=== PATIENT | female | born 1965 | race Caucasian/White ===

== ENCOUNTER → 2016-11-11 | Outpatient (CLI) | payer OTHER ==
[~2016-11-11] MED LIST: AMLO-110 PO; BUSP15TA70 PO; CYM/30 PO; FEXO1TAB58 PO; FLUT0.15; HYDR-5688 PO; HYDR25TA4 PO; LISI-461 PO; META1TAB22 PO; [UNRECOGNIZED DRUG - SUPPLY]
[2016-11-11 10:01] LABS: BASO % 0.9 %; BASO ABS # 0.05 K/uL (0-0.2); COMPLETE YES; EOS % 1.5 %; HEMATOCRIT 43.1 % (37-47); IG% 0.4 %; LYMPH % 38.3 %; LYMPH ABS # 2.07 K/uL (1.2-3.4); MEAN CORPUSCULAR HEMOGLOBIN 29.4 pg (25-34); MEAN PLATELET VOLUME 9.6 fL (7.4-10.4); NEUT % 46.9 %; PLATELET COUNT 351 K/uL (130-400); RED BLOOD COUNT 5.13 M/uL (4.2-5.4)
[2016-11-11 10:28] LABS: BLOOD UREA NITROGEN 18 mg/dl (7-18); BUN/CREATININE RATIO 26.7 (10-20); CALCIUM 9.4 mg/dl (8.5-10.1); CARBON DIOXIDE 33 mmol/L (21-32); CHLORIDE 104 mmol/L (98-107); CREATININE 0.68 mg/dl (0.60-1.20); GLUCOSE 64 mg/dl (70-99); POTASSIUM 3.5 mmol/L (3.5-5.1); SODIUM 143 mmol/L (136-145)
[2016-11-11 10:39] LABS: CHOLESTEROL 218 mg/dl (0-200); HDL CHOLESTEROL 44 mg/dl; LDL CHOLESTEROL CALCULATED 113 mg/dl; THYROID STIMULATING HORMONE 0.705 uIu/ml (0.300-4.500); TRIGLYCERIDES 307 mg/dl (0-150); VERY LOW DENSITY LIPOPROT CALC 61 mg/dl
== END | disposition home or self-care (01) ==
LOC: C.LAB 09:33
PROVIDERS: ATTEND Internal Medicine Geriatric Medicine
DX: I10 Essential (primary) hypertension (principal); I73.00 Raynaud's syndrome without gangrene; E78.5 Hyperlipidemia, unspecified

== ENCOUNTER → 2017-06-07 | Outpatient (CLI) | payer OTHER ==
--- NOTE | 2017-06-07 16:27 | DIAGNOSTIC IMAGING REPORT ---
TWO VIEW CHEST CLINICAL HISTORY: Acute bronchitis. FINDINGS: PA and lateral chest radiographs are obtained. No prior studies are available for comparison at the time of dictation. The cardiomediastinal silhouette is unremarkable. The lungs and pleural spaces are clear. There is no pneumothorax. The bony thorax appears intact. IMPRESSION: No active disease in the chest. Electronically signed by: Everton Hernandez M.D. 06/07/2017 4:25 PM Dictated Date/Time: 06/07/2017 4:25 PM
== END | disposition home or self-care (01) ==
LOC: C.RAD 15:44
PROVIDERS: ATTEND Physician Assistant
DX: J20.9 Acute bronchitis, unspecified (principal)

== ENCOUNTER → 2017-08-29 | Outpatient (CLI) | payer OTHER ==
--- NOTE | 2017-08-30 13:40 | MAMMOGRAPHY REPORT ---
BILATERAL DIGITAL SCREENING MAMMOGRAM TOMOSYNTHESIS WITH CAD: 08/29/2017 CLINICAL HISTORY: Routine screening. Patient has no complaints. TECHNIQUE: Breast tomosynthesis in addition to standard 2D mammography was performed. Current study was also evaluated with a Computer Aided Detection (CAD) system. COMPARISON: Comparison is made to exams dated: 11/12/2015 mammogram, 11/10/2014 mammogram, 10/31/2013 ma mmogram, 10/26/2012 mammogram, 04/24/2012 mammogram, and 10/24/2011 ultrasound - [facility] enter. BREAST COMPOSITION: There are scattered areas of fibroglandular density in both breasts. Mild invol utional changes comparing to more remote prior mammograms. FINDINGS: No suspicious mass, architectural distortion or cluster of suspicious microcalcifications is seen. IMPRESSION: ACR BI-RADS CATEGORY 1: NEGATIVE There is no mammographic evidence of malignancy. A 1 year screening mammogram is recommended. The pa tient will receive written notification of the results. Approximately 10% of breast cancers are not detected with mammography. A negative mammographic report should not delay biopsy if a clinically suggestive mass is present. Angela Ponce M.D. ay/:08/29/2017 15:54:31 [employer] Former: Chanel WALLIS(Charmaine)(Moo), [facility] letter sent: Normal 1/2 BI-RADS Code: ACR BI-RADS Category 1: Negative
== END | disposition home or self-care (01) ==
LOC: C.MAMM 12:12
PROVIDERS: ATTEND Internal Medicine Geriatric Medicine
DX: Z12.31 Encounter for screening mammogram for malignant neoplasm of breast (principal)

== ENCOUNTER → 2017-12-14 | Outpatient (CLI) | payer OTHER ==
[2017-12-14 13:07] LABS: BASO % 0.6 %; BASO ABS # 0.04 K/uL (0-0.2); EOS % 1.8 %; EOS ABS # 0.12 K/uL (0-0.5); HEMATOCRIT 45.7 % (37-47); HEMOGLOBIN 15.7 g/dL (12.0-16.0); IG# 0.02 K/uL (0.00-0.02); LYMPH % 30.4 %; LYMPH ABS # 2.07 K/uL (1.2-3.4); MEAN CELL VOLUME 87.5 fL (80-100); MEAN CORPUSCULAR HEMOGLOBIN 30.1 pg (25-34); MEAN CORPUSCULAR HGB CONC 34.4 g/dl (32-36); MEAN PLATELET VOLUME 10.3 fL (7.4-10.4); MONO % 10.3 %; NEUT % 56.6 %; NEUT ABS # 3.85 K/uL (1.4-6.5); PLATELET COUNT 297 K/uL (130-400); RED CELL DISTRIBUTION WIDTH CV 13.4 % (11.5-14.5); RED CELL DISTRIBUTION WIDTH SD 43.1 fL (36.4-46.3)
[2017-12-14 13:37] LABS: FOLLICLE STIMULAT HORMONE 67.91 IU/L
[2017-12-14 13:55] LABS: ALBUMIN 4.1 gm/dl (3.4-5.0); ALT/SGPT 52 U/L (12-78); AST/SGOT 28 U/L (15-37); BLOOD UREA NITROGEN 12 mg/dl (7-18); CALCIUM 9.9 mg/dl (8.5-10.1); CARBON DIOXIDE 28 mmol/L (21-32); CREATININE 0.82 mg/dl (0.60-1.20); GLUCOSE 109 mg/dl (70-99); POTASSIUM 3.5 mmol/L (3.5-5.1); SODIUM 134 mmol/L (136-145)
[2017-12-14 14:09] LABS: ALKALINE PHOSPHATASE 75 U/L (45-117); CHOLESTEROL 257 mg/dl (0-200); LDL CHOLESTEROL CALCULATED 166 mg/dl; TOTAL PROTEIN 7.9 gm/dl (6.4-8.2)
[2017-12-14 14:17] LABS: HEP C IGG 13 YRS+OLDER_RFLX NEG (NEG)
== END | disposition home or self-care (01) ==
LOC: C.LABBC 09:22
PROVIDERS: ATTEND Internal Medicine Geriatric Medicine
DX: I10 Essential (primary) hypertension (principal); E78.5 Hyperlipidemia, unspecified; M54.9 Dorsalgia, unspecified; Z11.59 Encounter for screening for other viral diseases

== ENCOUNTER 2020-10-28 09:48 | Inpatient (IN) ==
[2020-10-28] MEDS ORDERED: SODIUM CHLORIDE 0.9% 1000ML 1,000 ML IV SCH (10:15)
[2020-10-28] MEDS ORDERED: ONDANSETRON INJ 2 MG/ML 2 ML VIAL IV STA (10:15)
--- NOTE | 2020-10-28 10:17 | Emergency Department Note ---
History of Present Illness General Chief complaint: GI Assessment Stated complaint: VOMITING, PUKING BLOOD Time Seen by Provider: 10/28/20 10:04 History of Present Illness Maximum Pain Intensity: 5 This is a 55-year-old female that presents to the emergency department via private vehicle with complaints of "vomiting, vomiting blood". The patient notes that this past Monday she did not feel well. Then Monday night into Monday she began with vomiting. She notes that she has not been able to keep any food, medication or fluids down and every time that she tries to ingest any of these things she begins to vomit. She notes that today she notes a reddish tinged emesis and is concerned about blood in the vomit. She notes intermittent fevers and chills throughout the week. She notes decreased energy. She notes decreased ability to sleep. She also notes lower back pain which she will be following up with pain management for. She notes that she has been vaccinated against Covid 19 and also received her influenza vaccination. She notes a recent Covid test which was negative. She also notes today she began with some periumbilical abdominal pain that seem to favor the right side. She also notes chronic diarrhea. She rates her overall discomfort at this time is a 5/10. Home Medications Medication Instructions Recorded Confirmed Type albuterol sulfate 90 mcg/actuation 2 puffs INH Q6H PRN #8.5 gm 10/24/19 10/28/20 Rx aerosol inhaler acetaminophen 500 mg tablet 1,000 mg PO TID PRN 11/27/19 10/28/20 History fluticasone propionate 50 1 spray INTRANASAL DAILY #9.9 gm 04/02/20 10/28/20 Rx mcg/actuation nasal spray,suspension duloxetine 30 mg capsule,delayed 30 mg PO DAILY #30 cap 05/15/20 10/28/20 Rx release fexofenadine 180 mg tablet 180 mg PO DAILY tab 08/11/20 10/28/20 History hydrochlorothiazide 25 mg tablet 25 mg PO DAILY #90 tab 08/11/20 10/28/20 Rx losartan 25 mg tablet 25 mg PO DAILY #30 tab 08/11/20 10/28/20 Rx Allergies Allergy/AdvReac Type Severity Reaction Status Date / Time celecoxib Allergy Unknown GI SYMPTOMS Verified 10/28/20 11:12 mold Allergy Unknown Unknown Unverified 10/28/20 11:12 meloxicam [From Mobic] AdvReac Intermediate GI upset Unverified 10/28/20 11:12 venlafaxine [From Effexor] AdvReac Intermediate Dizziness Unverified 10/28/20 11:12 codeine AdvReac Mild N&V Verified 10/28/20 11:12 Past Med/Surg History Medical History Back pain Duloxetine for pain control HTN (hypertension) Hyperlipidemia Raynaud's disease Surgical History Ankle fracture, right History of dilation and curettage History of laparoscopy History of oral surgery History of tonsillectomy History of tubal ligation History of vaginal hysterectomy Previous back surgery piriformis suglianne 2017 Family History Sister Congestive heart failure dec 39 also HTN Hypertension Father Coronary heart disease Brother Valvular heart disease Denies family history of Ovarian cancer Prostate cancer Breast cancer Lung cancer Colorectal cancer Social History Smoking Status: Never smoker Hx Alcohol Use: Yes Alcohol Intake Frequency Comment: social Hx Substance Use: No Preferred Language: Czech Communication Ability: Effective Visual Impairment: No Limitations Hearing Ability: Normal marital status: Current Living Situation: Spouse current occupational status: employed 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[employer], [place] Feels Safe at Home: Yes Childhood Exposure to Second-Hand Smoke: No caffeine: Yes Dental Care, Regularly: Yes Physical Activity Frequency: Does not Exercise Seatbelt Use: always Sunscreen Use: Yes Review of Systems A total of 10 systems reviewed and were otherwise negative Physical Exam Vital Signs Vital Signs - 24 hr 10/28/20 09:50 10/28/20 11:24 10/28/20 11:28 Temperature 36.8 C Temperature Source Temporal Artery Scan Pulse Rate 73 64 77 Pulse Rate from SpO2 Sensor 64 76 Respiratory Rate 18 16 18 Respiratory Effort / Characteristics Non-Labored Spontaneous Respiratory Depth Normal Respiratory Pattern Regular Blood Pressure 187/84 H 160/98 H Blood Pressure Mean 118 118 Blood Pressure Position Sitting Pulse Oximetry 99 100 100 Oxygen Delivery Method Room Air Sepsis Recent Fever Within 48 Hours No Sepsis New/Unexplained Change in Mental Status N/A Sepsis Action Taken by Nursing No Action Required 10/28/20 11:30 10/28/20 12:00 10/28/20 12:30 Temperature Temperature Source Pulse Rate 72 72 73 Pulse Rate from SpO2 Sensor 71 70 80 Respiratory Rate 17 19 24 Respiratory Effort / Characteristics Respiratory Depth Respiratory Pattern Blood Pressure Blood Pressure Mean Blood Pressure Position Pulse Oximetry 99 96 90 Oxygen Delivery Method Sepsis Recent Fever Within 48 Hours Sepsis New/Unexplained Change in Mental Status Sepsis Action Taken by Nursing 10/28/20 13:02 10/28/20 13:03 10/28/20 13:30 Temperature Temperature Source Pulse Rate 63 67 72 Pulse Rate from SpO2 Sensor 66 68 Respiratory Rate 18 15 20 Respiratory Effort / Characteristics Respiratory Depth Respiratory Pattern Blood Pressure 175/81 H 159/117 H Blood Pressure Mean 112 131 Blood Pressure Position Pulse Oximetry 100 98 Oxygen Delivery Method Sepsis Recent Fever Within 48 Hours Sepsis New/Unexplained Change in Mental Status Sepsis Action Taken by Nursing 10/28/20 13:54 10/28/20 14:00 10/28/20 14:30 Temperature Temperature Source Pulse Rate 83 78 83 Pulse Rate from SpO2 Sensor 84 78 85 Respiratory Rate 16 19 24 Respiratory Effort / Characteristics Respiratory Depth Respiratory Pattern Blood Pressure 160/88 H 178/94 H 157/84 H Blood Pressure Mean 112 122 108 Blood Pressure Position Pulse Oximetry 99 97 99 Oxygen Delivery Method Sepsis Recent Fever Within 48 Hours Sepsis New/Unexplained Change in Mental Status Sepsis Action Taken by Nursing 10/28/20 15:00 10/28/20 15:01 10/28/20 15:30 Temperature Temperature Source Pulse Rate 72 73 82 Pulse Rate from SpO2 Sensor 75 75 86 Respiratory Rate 16 15 16 Respiratory Effort / Characteristics Respiratory Depth Respiratory Pattern Blood Pressure 146/122 H Blood Pressure Mean 130 Blood Pressure Position Pulse Oximetry 96 98 98 Oxygen Delivery Method Sepsis Recent Fever Within 48 Hours Sepsis New/Unexplained Change in Mental Status Sepsis Action Taken by Nursing 10/28/20 15:32 Temperature Temperature Source Pulse Rate 74 Pulse Rate from SpO2 Sensor 74 Respiratory Rate 23 Respiratory Effort / Characteristics Respiratory Depth Respiratory Pattern Blood Pressure 172/89 H Blood Pressure Mean 116 Blood Pressure Position Pulse Oximetry 99 Oxygen Delivery Method Sepsis Recent Fever Within 48 Hours Sepsis New/Unexplained Change in Mental Status Sepsis Action Taken by Nursing VITAL SIGNS - Vital signs and nursing notes were reviewed. Hypertensive, otherwise stable. GENERAL -55 [id number] appearing her stated age who is in no acute distress but appears to be in pain. Communicates well with provider and answers questions appropriately. SKIN - Without rashes. No meningeal or petechial rash. HEAD - NC/AT. EYES - PERRL with EOMI bilaterally. Sclera anicteric. EARS - No deformities of external structures noted on gross examination bilaterally. NOSE - Midline and without cyanosis. No epistaxis or purulent drainage noted. MOUTH/OROPHARYNX - Without perioral cyanosis. NECK - Neck with FROM. No nuchal rigidity. LUNGS - Chest wall symmetric without accessory muscle use, intercostals retractions, or central cyanosis. Normal vesicular breath sounds CTA B/L. No wheezes, rales, or rhonchi appreciated. CARDIAC - RRR with S1/S2. No murmur, rubs, or gallops appreciated. ABDOMEN - Abdominal contour normal without pulsations or visible masses. BS normoactive all four quadrants. Mild periumbilical and right lower quadrant abdominal tenderness palpation. Abdomen is soft and nonrigid. No palpable masses, hepatosplenomegaly, or ascites noted. EXTREMITIES - No clubbing or peripheral cyanosis. No pretibial edema present. +5/5 strength noted in UE/LE bilaterally. NEUROLOGIC - Cranial nerves II through XII grossly intact. PSYCH - A&O, and cooperates fully with examiner. Pt is very pleasant and interacts well with examiner. Course Administered Medications Discontinued Medications Sodium Chloride (Nss 1000ml) 1,000 mls @ 999 mls/hr IV .Q1H1M JAMES Stop: 10/28/20 11:15 Last Infusion: 10/28/20 12:48 Dose: 0 mls/hr Documented by: [id number] Admin: 10/28/20 11:41 Dose: 999 mls/hr Documented by: [id number] Potassium Chloride (K Marco / Wtr) 10 meq in 100 mls @ 100 mls/hr IV ONE ONE Stop: 10/28/20 14:59 Last Infusion: 10/28/20 16:11 Dose: 0 mls/hr Documented by: [id number] Admin: 10/28/20 14:56 Dose: 100 mls/hr Documented by: [id number] Ioversol (Ioversol 100ml) 94 ml IV ONCE ONE Stop: 10/28/20 13:44 Last Admin: 10/28/20 13:43 Dose: 94 ml Documented by: [id number] Ondansetron HCl (Ondansetron Inj 2 Mg/Ml 2 Ml Vial) 4 mg IV NOW STA Stop: 10/28/20 10:16 Last Admin: 10/28/20 11:39 Dose: 4 mg Documented by: [id number] Medical Decision Making Laboratory Data Result diagrams: 10/28/20 10:26 10/28/20 10:26 Lab Results 10/28/20 10/28/20 10/28/20 Range/Units 10: 10: 11:46 WBC 9.77 (4.8-10.8) K/uL RBC 5.57 H (4.2-5.4) M/uL Hgb 16.7 H (12.0-16.0) g/dL Hct 48.3 H (37-47) % MCV 86.7 (80-100) fL MCH 30.0 (25-34) pg MCHC 34.6 (32-36) g/dL RDW Std Deviation 41.2 (36.4-46.3) fL RDW Coeff of Mont[place] 13.0 (11.5-14.5) % Plt Count 342 (130-400) K/uL MPV 10.2 (7.4-10.4) fL Immature Gran % (Auto) 0.2 % Neut % (Auto) 70.1 % Lymph % (Auto) 20.9 % Hamilton % (Auto) 8.5 % Eos % (Auto) 0.0 % Baso % (Auto) 0.3 % Neut # (Auto) 6.85 H (1.4-6.5) K/uL Lymph # (Auto) 2.04 (1.2-3.4) K/uL Hamilton # (Auto) 0.83 H (0.11-0.59) K/uL Eos # (Auto) 0.00 (0-0.5) K/uL Baso # (Auto) 0.03 (0-0.2) K/uL Immature Gran # (Auto) 0.02 (0.00-0.02) K/uL Sodium 139 (136-145) mmol/L Potassium 2.8 L (3.5-5.1) mmol/L Chloride 103 (98-107) mmol/L Carbon Dioxide 30 (21-32) mmol/L Anion Gap 6.0 (3-11) BUN 16 (7-18) mg/dl Creatinine 0.85 (0.6-1.2) mg/dl Est Cr Clr Drug Dosing 75.2 ml/min Est GFR ( Amer) 88.2 Est GFR (Non-Af Amer) 76.1 BUN/Creatinine Ratio 18.1 (10-20) Glucose 120 H (70-99) mg/dl Calcium 10.1 (8.5-10.1) mg/dl Magnesium 2.3 (1.8-2.4) mg/dl Total Bilirubin 0.9 (0.2-1) mg/dl AST 20 (15-37) U/L ALT 33 (12-78) U/L Alkaline Phosphatase 64 (45-117) U/L Troponin I < 0.015 (0-0.045) ng/ml Total Protein 7.8 (6.4-8.2) gm/dl Albumin 4.3 (3.4-5.0) gm/dl Globulin 3.5 (2.5-4.0) gm/dl Albumin/Globulin Ratio 1.2 (0.9-2) Urine Color Dark Yellow Urine Appearance Cloudy A (Clear) Urine pH 5.5 (4.5-7.5) Ur Specific [place] 1.032 H (1.000-1.030) Urine Protein Trace H (Negative) Urine Glucose (UA) Negative (Negative) Urine Ketones Trace H (Negative) Urine Blood 1+ H (Negative) Urine Nitrite Positive A (Negative) Urine Bilirubin 1+ H (Negative) Urine Urobilinogen Negative (Negative) Ur Leukocyte Esterase Negative (Negative) Urine WBC (Auto) 1-5 (0-5) /hpf Urine RBC (Auto) 0-4 (0-4) /hpf U Hyaline Cast (Auto) 1-5 (0-5) /lpf U Epithel Cells (Auto) 5-10 H (0-5) /lpf Urine Bacteria (Auto) Negative (Negative) COVID-19 Eval Order SARS-CoV-2, RNA, NAAT (NEGATIVE) 10/28/20 10/28/20 Range/Units Unknown Unknown WBC (4.8-10.8) K/uL RBC (4.2-5.4) M/uL Hgb (12.0-16.0) g/dL Hct (37-47) % MCV (80-100) fL MCH (25-34) pg MCHC (32-36) g/dL RDW Std Deviation (36.4-46.3) fL RDW Coeff of Montse (11.5-14.5) % Plt Count (130-400) K/uL MPV (7.4-10.4) fL Immature Gran % (Auto) % Neut % (Auto) % Lymph % (Auto) % [place] % (Auto) % Eos % (Auto) % Baso % (Auto) % Neut # (Auto) (1.4-6.5) K/uL Lymph # (Auto) (1.2-3.4) K/uL [place] # (Auto) (0.11-0.59) K/uL Eos # (Auto) (0-0.5) K/uL Baso # (Auto) (0-0.2) K/uL Immature Gran # (Auto) (0.00-0.02) K/uL Sodium (136-145) mmol/L Potassium (3.5-5.1) mmol/L Chloride (98-107) mmol/L Carbon Dioxide (21-32) mmol/L Anion Gap (3-11) BUN (7-18) mg/dl Creatinine (0.6-1.2) mg/dl Est Cr Clr Drug Dosing ml/min Est GFR ( Amer) Est GFR (Non-Af Amer) BUN/Creatinine Ratio (10-20) Glucose (70-99) mg/dl Calcium (8.5-10.1) mg/dl Magnesium (1.8-2.4) mg/dl Total Bilirubin (0.2-1) mg/dl AST (15-37) U/L ALT (12-78) U/L Alkaline Phosphatase (45-117) U/L Troponin I (0-0.045) ng/ml Total Protein (6.4-8.2) gm/dl Albumin (3.4-5.0) gm/dl Globulin (2.5-4.0) gm/dl Albumin/Globulin Ratio (0.9-2) Urine Color Urine Appearance (Clear) Urine pH (4.5-7.5) Ur Specific [place] (1.000-1.030) Urine Protein (Negative) Urine Glucose (UA) (Negative) Urine Ketones (Negative) Urine Blood (Negative) Urine Nitrite (Negative) Urine Bilirubin (Negative) Urine Urobilinogen (Negative) Ur Leukocyte Esterase (Negative) Urine WBC (Auto) (0-5) /hpf Urine RBC (Auto) (0-4) /hpf U Hyaline Cast (Auto) (0-5) /lpf U Epithel Cells (Auto) (0-5) /lpf Urine Bacteria (Auto) (Negative) COVID-19 Eval Order Covid19 [facility]Now [facility] SARS-CoV-2, RNA, NAAT NEGATIVE (NEGATIVE) Imaging Data Radiologist's Impression: XR chest 1V portable CLINICAL HISTORY: burning sensation in chest COMPARISON STUDY: 11/28/2018 FINDINGS: The cardiac and mediastinal contours are normal. There is no evidence of focal pulmonary consolidation. There is no evidence of failure. No pleural effusions are visualized.[ IMPRESSION: No active disease in the chest. ACT 112: Negative or not required by law. Electronically signed by: Phani Nicolas M.D. 10/28/2020 10:[address] abd pelvis IV con only CLINICAL HISTORY: emesis, abd pain COMPARISON STUDY: None. TECHNIQUE: Patient was scanned in a dynamic helical fashion during intravenous administration of 94 cc of Optiray 320 A dose lowering technique was utilized adhering to the principles of ALARA. CT DOSE: 902.45 mGycm FINDINGS: Lower chest: There is a 5 mm left lower lobe pulmonary nodule versus small varix. Liver: The contrast-enhanced liver is normal in size, contour, and attenuation. There is no intrahepatic biliary ductal dilatation. The hepatic veins and portal veins are patent. Gallbladder: Unremarkable. Spleen: Normal in size and attenuation. Pancreas: Unremarkable. Adrenal glands: Unremarkable. Kidneys: There is symmetric renal cortical enhancement. The kidneys are normal in size without hydronephrosis. Bowel: There is no evidence of acute diverticulitis. The appendix appears normal. There is a mildly prominent right mid abdominal small bowel loops the upper limits of normal in size containing air-fluid levels. This is a nonspecific finding and could represent a focal ileus. Minimal partial obstruction cannot be excluded, there is clearly no current evidence for high-grade bowel obstruction. Peritoneum: There is no intraperitoneal free air or abdominal ascites. Vasculature: The abdominal aorta is normal in course and caliber. Adenopathy: None. Pelvic viscera: The uterus is surgically absent Skeletal structures: No destructive osseous lesions are seen. IMPRESSION: 1. Minimally prominent right mid abdominal small bowel loops with air-fluid levels. The finding is nonspecific and could represent a focal ileus. While a minimal partial obstruction cannot be excluded, there is clearly no current evidence for high-grade bowel obstruction. Clinical follow-up is advocated 2. Normal appendix. No evidence of acute diverticulitis ACT 112: Negative or not required by law. Electronically signed by: Phani Nicolas M.D. 10/28/2020 2:00 PM MDM Narrative Patient was seen and evaluated as above in room C7. Review was performed of nursing notes and vital signs. I did review pertinent previous visits and tino ent history. After obtaining a thorough history and physical examination the above work up was performed. She presents to us today with abdominal pain, vomiting. She notes several days of unable to keep any food, fluids or medication down. She continues to vomit. She notes today that there was some redness to the vomit. On examination she does have some mild abdominal tenderness. Options of care were discussed with the patient. IV access was established. Labs were drawn. She was given IV fluids. She was given IV Zofran. She declined pain medication. Given the location of discomfort and EKG and chest x- ray were performed on arrival and the chest x-ray is negative. EKG reveals nor mal sinus rhythm. QTc 440. QRS 108. There appear to be some new T wave inversions compared to previous EKG however troponin at this time is negative and this is not felt to be contributory to presentation here today. Laboratory studies reveal no leukocytosis. There is elevation of hemoglobin at 16.7. Hypokalemia 2.8. Glucose 120. Urinalysis reveals what is likely a contaminated sample. Patient's Covid testing is negative. CT scan was obtained of the abdomen and pelvis and does reveal what is concerning for possible partial bowel obstruction given her presentation and symptoms. Options were discussed in regard to managing this and we collectively agreed upon inpatient management for her further care. I discussed this with the hospitalist. Please refer to further documentation regarding her stay. GCS: 15 In the evaluation and treatment of this patient the following differential diagnoses were entertained: DE, PE, pericarditis, costochondritis, bowel obstruction, ileus, UTI, among others. Impression & Plan SBO (small bowel obstruction), Diarrhea Discharge Plan Visit Data Chief Complaint: GI Assessment Stated Complaint: VOMITING, PUKING BLOOD ED Provider: Kj Zaldivar ED Midlevel Provider: Kaleb Hogan Discharge Problem: SBO (small bowel obstruction), Diarrhea Patient Disposition: Admitted As Inpatient Condition: Good Forms Stand Alone Forms: My [facility], Virtual Emergency Department, Important Visit Information Prescriptions Prescriptions: No Action fluticasone propionate 50 mcg/actuation spray,suspension 1 spray intranasal DAILY Qty: 9.9 RF: 6 duloxetine 30 mg capsule,delayed release(DR/EC) 30 mg PO DAILY Qty: 30 RF: 6 albuterol sulfate 90 mcg/actuation HFA aerosol inhaler 2 puffs INH Q6H PRN (Reason: bronchospasm) Qty: 8.5 RF: 3 hydrochlorothiazide 25 mg tablet 25 mg PO DAILY Qty: 90 RF: 1 losartan 25 mg tablet 25 mg PO DAILY Qty: 30 RF: 6 acetaminophen 500 mg tablet 1,000 mg PO TID PRN (Reason: Pain) RF: 0 fexofenadine 180 mg tablet 180 mg PO DAILY RF: 0 Referrals Referrals: Hosea Fuller DO [Primary Care Provider] -
--- NOTE | 2020-10-28 10:29 | XRay Report ---
XR chest 1V portable CLINICAL HISTORY: burning sensation in chest COMPARISON STUDY: 11/28/2018 FINDINGS: The cardiac and mediastinal contours are normal. There is no evidence of focal pulmonary co nsolidation. There is no evidence of failure. No pleural effusions are visualized.[ IMPRESSION: No active disease in the chest. ACT 112: Negative or not required by law. Electronically signed by: Phani Nicolas M.D. 10/28/2020 10:28 AM
[2020-10-28 12:01] LABS: Appearance Urine Cloudy (Clear); Bacteria Urine Automated Negative (Negative); Blood Urine 1+ (Negative); Color Urine Dark Yellow; Glucose Urine UA Negative (Negative); Ketones Urine Trace (Negative); Leukocyte Esterase Urine Negative (Negative); Nitrite Urine Positive (Negative); Protein Urine Trace (Negative); RBC Urine Automated 0-4 /hpf (0-4); Specific Gravity Urine 1.032 (1.000-1.030); Urobilinogen Urine Negative (Negative); pH Urine 5.5 (4.5-7.5)
[2020-10-28 12:18] LABS: Basophils # (auto) 0.03 K/uL (0-0.2); Basophils % (auto) 0.3 %; Hematocrit (blood only) 48.3 % (37-47); Hemoglobin 16.7 g/dL (12.0-16.0); Immature Granulocytes # (auto) 0.02 K/uL (0.00-0.02); Immature Granulocytes % (auto) 0.2 %; Lymphocytes # (auto) 2.04 K/uL (1.2-3.4); Lymphocytes % (auto) 20.9 %; Mean Corpuscular Hgb Conc 34.6 g/dL (32-36); Mean Corpuscular Volume 86.7 fL (80-100); Mean Platelet Volume 10.2 fL (7.4-10.4); Monocytes # (auto) 0.83 K/uL (0.11-0.59); Monocytes % (auto) 8.5 %; Neutrophils # (auto) 6.85 K/uL (1.4-6.5); Neutrophils % (auto) 70.1 %; Platelet Count 342 K/uL (130-400); RDW Standard Deviation 41.2 fL (36.4-46.3); Red Blood Count 5.57 M/uL (4.2-5.4); White Blood Count 9.77 K/uL (4.8-10.8)
[2020-10-28 12:24] LABS: Albumin Level 4.3 gm/dl (3.4-5.0); BUN Creatinine Ratio 18.1 (10-20); Blood Urea Nitrogen 16 mg/dl (7-18); Calcium 10.1 mg/dl (8.5-10.1); Carbon Dioxide 30 mmol/L (21-32); Chloride 103 mmol/L (98-107); Creatinine Clr Calc Pharmacy 75.2 ml/min; Est GFR (African American) 88.2; Est GFR (Non-African American) 76.1; Glucose 120 mg/dl (70-99); Magnesium 2.3 mg/dl (1.8-2.4); Potassium 2.8 mmol/L (3.5-5.1); Sodium 139 mmol/L (136-145)
--- NOTE | 2020-10-28 12:26 | Electrocardiogram Report ---
Test Reason : Blood Pressure : / mmHG Vent. Rate : 069 BPM Atrial Rate : 069 BPM P-R Int : 160 ms QRS Dur : 108 ms QT Int : 410 ms P-R-T Axes : 042 -44 -10 degrees QTc Int : 440 ms Normal sinus rhythm with sinus arrhythmia Left axis deviation Minimal voltage criteria for LVH, may be normal variant Nonspecific ST and T wave abnormality Abnormal ECG When compared with ECG of 29-NOV-2018 14:41, T wave inversion now evident in Inferior leads T wave inversion now evident in Anterior leads Confirmed by Daron Tavarez ([id number]) on 10/28/2020 12:25:48 PM Referred By: REFERRED SELF Confirmed By:Keegan Tavarez
[2020-10-28 12:28] LABS: Bilirubin Urine 1+ (Negative)
[2020-10-28 12:29] LABS: Alanine Aminotransferase 33 U/L (12-78); Albumin Globulin Ratio 1.2 (0.9-2); Alkaline Phosphatase 64 U/L (45-117); Aspartate Aminotransferase 20 U/L (15-37); Bilirubin,Total 0.9 mg/dl (0.2-1); Globulin 3.5 gm/dl (2.5-4.0); Total Protein 7.8 gm/dl (6.4-8.2); Troponin I < 0.015 ng/ml (0-0.045)
[2020-10-28] MEDS ORDERED: OPTIRAY 320 100ml IV ONE (13:43)
[2020-10-28] MEDS ORDERED: POTASSIUM CHLORIDE / WTR 10 MEQ/100 ML PLCT IV ONE (14:00)
--- NOTE | 2020-10-28 14:02 | CT Scan Report ---
CT abd pelvis IV con only CLINICAL HISTORY: emesis, abd pain COMPARISON STUDY: None. TECHNIQUE: Patient was scanned in a dynamic helical fashion during intravenous administration of 94 c c of Optiray 320 A dose lowering technique was utilized adhering to the principles of ALARA. CT DOSE: 902.45 mGycm FINDINGS: Lower chest: There is a 5 mm left lower lobe pulmonary nodule versus small varix. Liver: The contrast-enhanced liver is normal in size, contour, and attenuation. There is no intrahepa tic biliary ductal dilatation. The hepatic veins and portal veins are patent. Gallbladder: Unremarkable. Spleen: Normal in size and attenuation. Pancreas: Unremarkable. Adrenal glands: Unremarkable. Kidneys: There is symmetric renal cortical enhancement. The kidneys are normal in size without hydron ephrosis. Bowel: There is no evidence of acute diverticulitis. The appendix appears normal. There is a mildly p rominent right mid abdominal small bowel loops the upper limits of normal in size containing air-flui d levels. This is a nonspecific finding and could represent a focal ileus. Minimal partial obstruction cannot be excluded, there is clearly no current evidence for high-grade b owel obstruction. Peritoneum: There is no intraperitoneal free air or abdominal ascites. Vasculature: The abdominal aorta is normal in course and caliber. Adenopathy: None. Pelvic viscera: The uterus is surgically absent Skeletal structures: No destructive osseous lesions are seen. IMPRESSION: 1. Minimally prominent right mid abdominal small bowel loops with air-fluid levels. The finding is no nspecific and could represent a focal ileus. While a minimal partial obstruction cannot be excluded, there is clearly no current evidence for high-grade bowel obstruction. Clinical follow-up is advocate d 2. Normal appendix. No evidence of acute diverticulitis ACT 112: Negative or not required by law. Electronically signed by: Phani Nicolas M.D. 10/28/2020 2:00 PM
--- NOTE | 2020-10-28 15:16 | History & Physical Report ---
Date of Service October 28, 2020 Assessment & Plan (1) SBO (small bowel obstruction): CT a/p on 10/28 showed "minimally prominent right mid abdominal small bowel loops with air-fluid levels" consistent with possible ileus vs. partial SBO. Hysterectomy in 1994 is only prior abdominal surgery. Mild hematemesis is likely Emmy-Lopez in nature. No melena to indicate significant upper GI bleed. - Defer GI consult for now. - PPI IV daily to promote healing - Gentle IV fluids - Replete potassium & other electrolytes PRN - Pain & nausea control - NPO with sips/chips only -> Advance diet tomorrow morning if comfortable. Patient presently declined NG tube which I think is appropriate given very mild findings on CT. (2) HTN (hypertension): BP in the ED was initially 190/85 in the context of pain and nausea. Down to 160/85 just with pain control. Has not taken her BP meds since Monday due to nausea and vomiting. - Hold home BP meds - Hydralazine PRN for high BP (3) Back pain: Long-standing with prior piriformis surgery and some residual and ongoing left-sided sciatica pain and some left hip numbness. - Continue duloxetine as able to tolerate - Pain control as above (4) Diarrhea: Ongoing for 6 months. No blood, no melena. Being worked up as outpatient. - Defer Imodium for now in the context of SBO - Continue outpatient work-up (5) Hyperlipidemia: Not on any home statin. - No inpatient needs (6) DVT prophylaxis: SCDs - Low DVT risk per admission calculator History of Present Illness Primary Care Provider: Hosea Fuller, DO 55yo F w/ hx of HTN & allergies who presents with partial SBO vs. ileus. She reports that she was in her usual state of health until Monday night/Monday morning when she began to have nausea and emesis after eating and drinking. She also reports some RLQ pain without radiation that has been ongoing and steadily worsening in nature. She notes that the pain is slightly worse when she eats or drinks something which causes to vomit. She has had multiple rounds of emesis and this morning had two swallows of water and two of coffee and had emesis with some mild/moderate blood tinge. She reports the vomitus was reddish and "more than pink." No coffee grounds with it. She has been having diarrhea for 6 months, and reports continued diarrhea during this time. She reports just a bit of diarrhea while in the ED; however, she is not passing any gas at this time. She endoreses some mild, subjective fevers and chills, and some GERD-type chest pain with emesis. Otherwise no chest pain, no shortness of breath, no dizziness. She had a hysterectomy in ~1994, but no other abdominal surgeries and no prior episodes of SBO. Allergies Allergy/AdvReac Type Severity Reaction Status Date / Time celecoxib Allergy Unknown GI SYMPTOMS Verified 10/28/20 11:12 mold Allergy Unknown Unknown Unverified 10/28/20 11:12 meloxicam [From Mobic] AdvReac Intermediate GI upset Unverified 10/28/20 11:12 venlafaxine [From Effexor] AdvReac Intermediate Dizziness Unverified 10/28/20 11:12 codeine AdvReac Mild N&V Verified 10/28/20 11:12 Home Medications Medication Instructions Recorded Confirmed Type albuterol sulfate 90 mcg/actuation 2 puffs INH Q6H PRN #8.5 gm 10/24/19 10/28/20 Rx aerosol inhaler acetaminophen 500 mg tablet 1,000 mg PO TID PRN 11/27/19 10/28/20 History fluticasone propionate 50 1 spray INTRANASAL DAILY #9.9 gm 04/02/20 10/28/20 Rx mcg/actuation nasal spray,suspension duloxetine 30 mg capsule,delayed 30 mg PO DAILY #30 cap 05/15/20 10/28/20 Rx release fexofenadine 180 mg tablet 180 mg PO DAILY tab 08/11/20 10/28/20 History hydrochlorothiazide 25 mg tablet 25 mg PO DAILY #90 tab 08/11/20 10/28/20 Rx losartan 25 mg tablet 25 mg PO DAILY #30 tab 08/11/20 10/28/20 Rx Past Med/Surg History Medical History Back pain Duloxetine for pain control HTN (hypertension) Hyperlipidemia Raynaud's disease Surgical History Ankle fracture, right History of dilation and curettage History of laparoscopy History of oral surgery History of tonsillectomy History of tubal ligation History of vaginal hysterectomy Previous back surgery piriformis suglianne 2017 Family History Sister Congestive heart failure aug 39 also HTN Hypertension Father Coronary heart disease Brother Valvular heart disease Denies family history of Ovarian cancer Prostate cancer Breast cancer Lung cancer Colorectal cancer Social History Smoking Status: Never smoker Hx Alcohol Use: Yes Alcohol Intake Frequency Comment: social Hx Substance Use: No Preferred Language: French Communication Ability: Effective Visual Impairment: No Limitations Hearing Ability: Normal marital status: Current Living Situation: Spouse current occupational status: employed 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[employer] Feels Safe at Home: Yes Childhood Exposure to Second-Hand Smoke: No caffeine: Yes Dental Care, Regularly: Yes Physical Activity Frequency: Does not Exercise Seatbelt Use: always Sunscreen Use: Yes Review of Systems Review of Systems: All systems reviewed & are unremarkable except as noted in HPI & below Physical Exam Constitutional: WD/WN, vitals as above Eyes: EOM intact bilaterally; no conjunctival abnormality ENMT: external ear and nose normal, oropharynx normal Neck: trachea midline, no thyromegaly normal visual inspection Respiratory: normal respiratory effort, lungs clear to auscultation no respiratory distress Cardiovascular: RRR, no murmur, no edema Gastrointestinal (Abdomen): Inspection/Auscultation: abdomen normal to inspection and normal bowel sounds; abdomen not distended Percussion/Palpation: + abdomen tender (Minimally in RLQ) and abdomen soft; no guarding and abdomen not rigid Musculoskeletal: no cyanosis or clubbing, extremities motor strength 5/5 Skin: no rashes, warm and dry Neurologic: moves all extremities and awake Psychiatric: Orientation: alert, oriented to person and cooperative Results & Data Results & Data ([facility]) Vital Signs (Past 12 Hours) Vital Signs Temp Pulse Resp BP Pulse Ox 10/28/20 14:30 83 24 157/84 H 99 10/28/20 14:00 78 19 178/94 H 97 10/28/20 13:54 83 16 160/88 H 99 10/28/20 13:30 72 20 159/117 H 98 10/28/20 13:03 67 15 100 10/28/20 13:02 63 18 175/81 H 02/24/21 12:30 73 24 90 10/28/20 12:00 72 19 96 10/28/20 11:30 72 17 99 10/28/20 11:28 77 18 100 10/28/20 11:24 64 16 160/98 H 100 10/28/20 09:50 36.8 C 73 18 187/84 H 99 Code Status & VTE Plan VTE Prophylaxis Plan VTE Prophylaxis will be ordered: Yes PG Care Time/CCT Total # of Minutes Spent Total Time Spent with Patient: Total time spent is greater than 50% in coordination of care (as documented) at patient's floor/unit and/or counseling patient: Coding Level of Care Code 17460 Initial Inpt Care Lvl 3 Diagnoses SBO (small bowel obstruction) K56.609 HTN (hypertension) I10 Back pain M54.9 Diarrhea R19.7 Hyperlipidemia E78.5 DVT prophylaxis Z29.9
[2020-10-28] MEDS ORDERED: ACETAMINOPHEN 1,000 MG/100 ML VIAL IV PRN (17:48)
[2020-10-28] MEDS ORDERED: MoRPHine SULFATE 4 MG/ML 1 ML CARP\\VIAL IV PRN (17:48)
[2020-10-28] MEDS ORDERED: ALBUTEROL HFA 8 GM INHALER INH PRN (17:48)
[2020-10-28] MEDS ORDERED: ONDANSETRON INJ 2 MG/ML 2 ML VIAL IV PRN (17:48)
[2020-10-28] MEDS ORDERED: hydrALAZINE HCL 20 MG/ML VIAL IV PRN (17:48)
[2020-10-28] MEDS: POTASSIUM CHLORIDE / WTR 10 MEQ/100 ML PLCT IV SCH ×3 (18:41→20:46)
[2020-10-28] MEDS: POTASSIUM CHLORIDE 40 MEQ in SODIUM CHLORIDE 0.9% 1000ML 1,000 ML IV SCH (18:41)
[2020-10-28] MEDS: FAMOTIDINE 20 MG in SYRINGE 3 ML IV SCH (20:50)
[2020-10-29 07:44] LABS: Hematocrit (blood only) 42.3 % (37-47); Hemoglobin 14.3 g/dL (12.0-16.0); Mean Corpuscular Hemoglobin 29.8 pg (25-34); Mean Corpuscular Hgb Conc 33.8 g/dL (32-36); Mean Corpuscular Volume 88.1 fL (80-100); Mean Platelet Volume 9.8 fL (7.4-10.4); Platelet Count 284 K/uL (130-400); RDW Standard Deviation 42.2 fL (36.4-46.3); White Blood Count 7.55 K/uL (4.8-10.8)
[2020-10-29] MEDS: FLUTICASONE PROPIONATE NA SPR 16 GM BTL SCH (08:07)
[2020-10-29] MEDS: POTASSIUM CHLORIDE 40 MEQ in SODIUM CHLORIDE 0.9% 1000ML 1,000 ML IV SCH (08:07)
[2020-10-29] MEDS: FAMOTIDINE 20 MG in SYRINGE 3 ML IV SCH ×2 (08:08→20:06)
[2020-10-29] MEDS: DULoxetine HCL 30 MG CAP PO SCH (08:08)
[2020-10-29 08:16] LABS: BUN Creatinine Ratio 17.6 (10-20); Calcium 8.8 mg/dl (8.5-10.1); Creatinine Clr Calc Pharmacy 87.6 ml/min; Est GFR (Non-African American) 91.4; Magnesium 2.3 mg/dl (1.8-2.4); Potassium 3.2 mmol/L (3.5-5.1)
[2020-10-29] MEDS ORDERED: POTASSIUM CHLORIDE 10 MEQ TABCR PO ONE (09:45)
--- NOTE | 2020-10-29 13:10 | Hospitalist Progress Note ---
Date of Service October 29, 2020 Assessment & Plan (1) SBO (small bowel obstruction): * CT a/p on 10/28 showed "minimally prominent right mid abdominal small bowel loops with air-fluid levels" consistent with possible ileus vs. partial SBO. Hysterectomy in 1994 is only prior abdominal surgery. Mild hematemesis is likely Emmy-Lopez in nature. No melena to indicate significant upper GI bleed. * Pepcid IV BID to promote healing -- continue PPI at d/c * Gentle IVF but will increase to 100cc/hr for next liter then d/c * Clear liquid diet for now, advance as tolerated * Potassium replacement in IV and added 30meq PO this morning * Pain/nausea control prn * Will need education on low fiber diet and will have her follow up with Dr. Rashid for c--scope as outpatient (also with chronic diarrhea) * Labs in AM (2) HTN (hypertension): * BP in the ED was initially 190/85 in the context of pain and nausea and went down to 160/85 just with pain control. * Of note, had not taken her BP meds since Monday due to nausea and vomiting. * With headache this morning x 2 (first relieved with tylenol) and BP elevated to 156/79 * Will resume losartan 25mg PO but hold HCTZ given hypokalemia * Hydralazine prn * Continue to monitor (3) Back pain: * Long-standing with prior piriformis surgery and some residual and ongoing left-sided sciatica pain and some left hip numbness. * Conitnued duloxetine * Added lidocaine patch, baclofen prn * Will get pain management appt for f/u with Dr. Quintero per patient request (4) Diarrhea: * Ongoing for 6 months. No blood, no melena. Being worked up as outpatient. * Patient denies any specific food allergies or specific items that make diarrhea worse. "Ten minutes after I eat I'm in the bathroom" * Defer Imodium for now in the context of SBO * Continue outpatient work-up with f/u with GI for outpatient scope/ further work-up (5) Hyperlipidemia: * Not on any home statin. Most recent lipid panel August 2020 with elevated triglycerides 458 and cholesterol 231 * Will discuss starting fenofibrate/statin prior to discharge -- may need to defer to PCP until pain addressed to avoid increased myalgias with statin therapy * Will discuss with patient in AM (6) Allergies: * Chronic * Takes Shona and flonase as outpatient * Increased congestion this morning improved with flonase * Will resume Shona in AM (7) DVT prophylaxis: * SCDs - Low DVT risk per admission calculator * Ambulation encouraged Dispo: continued inpatient stay -- possible discharge tomorrow vs. Monday Admission and Anticipated Discharge Date Admission Date: October 28, 2020 Supervising Physician Co-Signing Physician Notes PA Supervision Note: I did not personally see or examine the patient today, but I verified all branch points of DELANEY Cruz's assessment and plan with the following exceptions/additions: None Subjective Patient evaluated this afternoon. Tolerating ice chips but nothing else. Passing gas and has had multiple liquid/clear stools. Previous coloscopy at age 48 [address] Rashid and discussed following up for repeat studies. Also discussed low fiber diet for the next 2 days. No further n/v or hematemesis. Continued PPI. Has some reflux like symptoms with water though. Abdominal pain more crampy like but improved to umbilical/right quadrant. Mild headache this morning and relieved with Tylenol but headache back now. Typically takes HCTZ 25mg and losartan 25 mg. Will resume losartan for BP 156/79 and hypokalemia. Took potassium without issues this morning. No fever, chills, chest pain, shortness of breath, dysuria, however she is making less urine than typically per her account. Will increase rate for this current bag of IVF and advance to clear liquids. Has some chronic L hip/back pain and issues with her facets. 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 She was to have follow up with pain management but got a call about follow up with Natalie manuel. Discussed making an appointment for her prior to d/c and if needed after f/u with PCP/medication adjustments. She had previously seen Dr. Carey. Will try lidocaine patch and zanaflex. Discussed diet changes for today and if stable tomorrow can consider d/c with close follow up. Review of Systems Review of Systems: All systems reviewed & are unremarkable except as noted in HPI & below Physical Exam Constitutional: WD/WN, vitals as above Eyes: EOM intact bilaterally; no conjunctival abnormality ENMT: external ear and nose normal, oropharynx normal Neck: trachea midline, no thyromegaly normal visual inspection Respiratory: normal respiratory effort, lungs clear to auscultation no respiratory distress Cardiovascular: RRR, no murmur, no edema Gastrointestinal (Abdomen): Inspection/Auscultation: abdomen normal to inspection and normal bowel sounds; abdomen not distended Percussion/Palpation: abdomen soft; abdomen nontender, no guarding and abdomen not rigid Musculoskeletal: no cyanosis or clubbing, extremities motor strength 5/5 Skin: no rashes, warm and dry Neurologic: moves all extremities and awake Psychiatric: Orientation: alert, oriented to person and cooperative Results & Data Results & Data ([facility]) Vital Signs (Past 12 Hours) Vital Signs Temp Pulse Resp BP Pulse Ox 10/29/20 07:55 37.3 C 77 18 156/79 H 93 Laboratory Results 10/29/20 10/29/20 10/29/20 Range/Units 07:11 07:11 07:11 WBC 7.55 (4.8-10.8) K/uL RBC 4.80 (4.2-5.4) M/uL Hgb 14.3 (12.0-16.0) g/dL Hct 42.3 (37-47) % MCV 88.1 (80-100) fL MCH 29.8 (25-34) pg MCHC 33.8 (32-36) g/dL RDW Std Deviation 42.2 (36.4-46.3) fL RDW Coeff of Montse 13.0 (11.5-14.5) % Plt Count 284 (130-400) K/uL MPV 9.8 (7.4-10.4) fL Sodium 143 (136-145) mmol/L Potassium 3.2 L (3.5-5.1) mmol/L Chloride 111 H (98-107) mmol/L Carbon Dioxide 27 (21-32) mmol/L Anion Gap 5.0 (3-11) BUN 13 (7-18) mg/dl Creatinine 0.73 (0.6-1.2) mg/dl Est Cr Clr Drug Dosing 87.6 ml/min Est GFR ( Amer) 106.0 Est GFR (Non-Af Amer) 91.4 BUN/Creatinine Ratio 17.6 (10-20) Glucose 105 H (70-99) mg/dl Calcium 8.8 (8.5-10.1) mg/dl Magnesium 2.3 (1.8-2.4) mg/dl Lipase 99 (73-393) U/L COVID-19 Eval Order SARS-CoV-2, RNA, NAAT (NEGATIVE) 10/28/20 10/28/20 Range/Units Unknown Unknown WBC (4.8-10.8) K/uL RBC (4.2-5.4) M/uL Hgb (12.0-16.0) g/dL Hct (37-47) % MCV (80-100) fL MCH (25-34) pg MCHC (32-36) g/dL RDW Std Deviation (36.4-46.3) fL RDW Coeff of Montse (11.5-14.5) % Plt Count (130-400) K/uL MPV (7.4-10.4) fL Sodium (136-145) mmol/L Potassium (3.5-5.1) mmol/L Chloride (98-107) mmol/L Carbon Dioxide (21-32) mmol/L Anion Gap (3-11) BUN (7-18) mg/dl Creatinine (0.6-1.2) mg/dl Est Cr Clr Drug Dosing ml/min Est GFR ( Amer) Est GFR (Non-Af Amer) BUN/Creatinine Ratio (10-20) Glucose (70-99) mg/dl Calcium (8.5-10.1) mg/dl Magnesium (1.8-2.4) mg/dl Lipase (73-393) U/L COVID-19 Eval Order Covid19 IDNow atMMOC SARS-CoV-2, RNA, NAAT NEGATIVE (NEGATIVE) Diagnostic Findings CXR IMPRESSION: No active disease in the chest. CTAP IMPRESSION: 1. Minimally prominent right mid abdominal small bowel loops with air-fluid levels. The finding is nonspecific and could represent a focal ileus. While a minimal partial obstruction cannot be excluded, there is clearly no current evidence for high-grade bowel obstruction. Clinical follow-up is advocated 2. Normal appendix. No evidence of acute diverticulitis PG Care Time/CCT Total # of Minutes Spent Total Time Spent with Patient: Total time spent is greater than 50% in coordination of care (as documented) at patient's floor/unit and/or counseling patient: Coding Level of Care Code 20659 Subseq Hosp Care Lvl 3 Diagnoses SBO (small bowel obstruction) K56.609 HTN (hypertension) I10 Back pain M54.9 Diarrhea R19.7 Hyperlipidemia E78.5 Allergies T78.40XA DVT prophylaxis Z29.9
[2020-10-29] MEDS: LIDOCAINE 5% 1 PATCH TD SCH (13:48)
[2020-10-29] MEDS: BACLOFEN 10 MG TAB PO SCH ×2 (13:48→20:06)
[2020-10-29] MEDS: LOSARTAN POTASSIUM 25 MG TAB PO SCH (13:48)
--- NOTE | 2020-10-29 16:52 | Electrocardiogram Report ---
Test Reason : Blood Pressure : / mmHG Vent. Rate : 069 BPM Atrial Rate : 069 BPM P-R Int : 164 ms QRS Dur : 104 ms QT Int : 400 ms P-R-T Axes : 065 -50 040 degrees QTc Int : 428 ms Normal sinus rhythm Left anterior fascicular block Nonspecific ST abnormality Abnormal ECG When compared with ECG of 28-OCT-2020 11:19, Incomplete right bundle branch block is no longer Present Confirmed by Daron Tavarez ([id number]) on 10/29/2020 4:51:55 PM Referred By: REFERRED SELF Confirmed By:Keegan Tavarez
[2020-10-29] MEDS ORDERED: DICYCLOMINE HCL 20 MG TAB PO PRN (18:15)
--- NOTE | 2020-10-29 19:54 | XRay Report ---
KUB CLINICAL HISTORY: Generalized abdominal pain. FINDINGS: 2 AP supine abdominal radiographs are correlated with abdominal CT dated 10/28/2020. There i s a nonobstructed abdominal bowel gas pattern. No evidence of intraperitoneal free air is seen on the se supine views. There are no abnormal abdominal calcifications. Phleboliths are noted in the pelvis. The skeletal structures are osteopenic and appear intact. IMPRESSION: Nonobstructed abdominal bowel gas pattern. Electronically signed by: Everton Hernandez M.D. 10/29/2020 7:53 PM
[2020-10-30 07:03] LABS: Hematocrit (blood only) 39.7 % (37-47); Hemoglobin 13.4 g/dL (12.0-16.0); Mean Corpuscular Hemoglobin 29.8 pg (25-34); Mean Corpuscular Hgb Conc 33.8 g/dL (32-36); Mean Corpuscular Volume 88.2 fL (80-100); Mean Platelet Volume 9.6 fL (7.4-10.4); Platelet Count 231 K/uL (130-400); RDW Coefficient of Variation 12.9 % (11.5-14.5); RDW Standard Deviation 41.7 fL (36.4-46.3); White Blood Count 6.38 K/uL (4.8-10.8)
[2020-10-30 07:50] LABS: BUN Creatinine Ratio 12.7 (10-20); Calcium 8.9 mg/dl (8.5-10.1); Creatinine Clr Calc Pharmacy 88.8 ml/min; Est GFR (African American) 107.7; Magnesium 2.2 mg/dl (1.8-2.4); Potassium 3.9 mmol/L (3.5-5.1)
[2020-10-30 08:03] LABS: Thyroid Stimulating Hormone 0.574 uIu/ml (0.300-4.500)
[2020-10-30] MEDS: BACLOFEN 10 MG TAB PO SCH ×2 (08:24→20:23)
[2020-10-30] MEDS: DULoxetine HCL 30 MG CAP PO SCH (08:24)
[2020-10-30] MEDS: FAMOTIDINE 20 MG in SYRINGE 3 ML IV SCH ×2 (08:24→20:23)
[2020-10-30] MEDS: LOSARTAN POTASSIUM 25 MG TAB PO SCH (08:24)
[2020-10-30] MEDS: LIDOCAINE 5% 1 PATCH TD SCH (08:24)
[2020-10-30] MEDS: FEXOFENADINE HCL 180 MG TAB PO SCH (08:24)
[2020-10-30] MEDS: FLUTICASONE PROPIONATE NA SPR 16 GM BTL SCH (08:25)
[2020-10-30] MEDS ORDERED: hydroCHLOROthiazide 25 MG TAB PO STA (09:00)
--- NOTE | 2020-10-30 09:01 | XRay Report ---
XR KUB/Abdomen 1 view CLINICAL HISTORY: Small bowel obstruction COMPARISON STUDY: 10/29/2020 FINDINGS: There is gas present within nondilated colon. There is no pathologic small bowel dilatation . There are multiple pelvic basin calcification statistically representing phleboliths. IMPRESSION: Nonobstructive bowel gas pattern. ACT 112: Negative or not required by law. Electronically signed by: Phani Nicolas M.D. 10/30/2020 8:59 AM
[2020-10-30 11:58] LABS: Appearance Urine Clear (Clear); Bacteria Urine Automated 2+ (Negative); Bilirubin Urine Negative (Negative); Blood Urine 2+ (Negative); Color Urine Yellow; Glucose Urine UA Negative (Negative); Ketones Urine Negative (Negative); Leukocyte Esterase Urine 1+ (Negative); Nitrite Urine Negative (Negative); Protein Urine Trace (Negative); Specific Gravity Urine 1.022 (1.000-1.030); Urobilinogen Urine Negative (Negative); WBC Urine Automated >30 /hpf (0-5); pH Urine 5.5 (4.5-7.5)
--- NOTE | 2020-10-30 13:32 | Hospitalist Progress Note ---
Date of Service October 30, 2020 Assessment & Plan (1) UTI (urinary tract infection): Admitted for possible ileus vs partial SBO, resolved * Reported decreased output but increased burning/urgency * UA on admission without infection * Repeat UA today with 2+ blood, 1+ leuk est, >30 WBC, 5-10 RBC, 5-10 epi, 2+ bacteria * Culture pending -- follow * Place on Ceftriaxone now -- transition to PO once cx resulted * WBC wnl, no fever (she typically states she runs low) * Cr stable, no CVA tenderness, no hx stones * Renal/Bladder US pending (2) SBO (small bowel obstruction): * CT a/p on 10/28 showed "minimally prominent right mid abdominal small bowel loops with air-fluid levels" consistent with possible ileus vs. partial SBO. Hysterectomy in 1994 is only prior abdominal surgery. Mild hematemesis is likely Emmy-Lopez in nature. No melena to indicate significant upper GI bleed. * Pepcid IV BID to promote healing--> transitioned to protonix 40mg PO BID * No further IVF * Full liquids tolerated this morning and advancing to low fiber * KUB with non-obstructive pattern. Continues to move her bowels * Educated on low fiber diet, however discussed Metamucil in upcoming weeks to help with bulking of her stool as she has chronic diarrhea and likely IBS. No hx UC or Crohns personally or in her family. * Requested consult for Dr. Rashid while inpatient -- i did schedule her appointment for December 24 through their office yesterday for office visit with likely need for repeat scope (3) HTN (hypertension): * BP in the ED was initially 190/85 in the context of pain and nausea and went down to 160/85 just with pain control. Of note, had not taken her BP meds since Monday due to nausea and vomiting. * BP elevated yesterday with headache and losartan 25mg daily resumed * BP 151/90 and labs stable and will resume HCTZ 25mg daily this morning * Continue to monitor * Hydralazine prn (4) Back pain: * Long-standing with prior piriformis surgery and some residual and abran oing left-sided sciatica pain and some left hip numbness. * Continued duloxetine * Added lidocaine patch, baclofen prn -- states relief but now has * Will need to see PCP (appt with Natalie Gentile November 02) for referral to pain management * Does report issues with work incident last week hanging curtain on a ladder with pain shooting up into her arm. Now with residual left groin numbness. ?pinced nerve * No loss bowel/bladder function * Consider low back plain films if persists (5) Diarrhea: * Ongoing for 6 months. No blood, no melena. Being worked up as out patient. * Patient denies any specific food allergies or specific items that make diarrhea worse. "Ten minutes after I eat I'm in the bathroom" * Defer Imodium for now in the context of SBO * Consideration for Metamucil moving forward to help bulk her stools * Continue outpatient work-up with f/u with GI for outpatient scope/ further work-up * see above * (6) Hyperlipidemia: * Not on any home statin. Most recent lipid panel August 2020 with elevated triglycerides 458 and cholesterol 231 * Will discuss starting fenofibrate/statin prior to discharge -- may need to defer to PCP until pain addressed to avoid increased myalgias with statin therapy * Should start on statin but given back pain/arthralgia, will hold off during inpatient hospitalization (7) Allergies: * Chronic * Takes Shona and flonase as outpatient * Increased congestion improved with flonase * Resumed Shona in AM * Stable (8) DVT prophylaxis: * SCDs - Low DVT risk per admission calculator * Ambulation encouraged Dispo: continued inpatient stay Admission and Anticipated Discharge Date Admission Date: October 28, 2020 Supervising Physician Co-Signing Physician Notes PA Supervision Note: I did not personally see or examine the patient today, but I verified all branch points of DELANEY Cruz's assessment and plan with the following exceptions/additions: None Subjective Patient evaluated this morning. Discomfort in suprapubic area and burning with urination. [place] like she is getting a UTI. Has been mindful with the diarrhea (liquid, clear) with keeping clean. Obtained UA this morning and discussed looks infected and placed on abx. No CVA tenderness or radiation of pain. Separate discomfort to her LEFT hip with radiation/numbness to her groin. Slightly different from her previous piriformis discomfort/numbness/tingling that would typically be on her lateral thigh and then into her medial lower leg. No loss of bowel/bladder function but did have injury at work last week putting curtains up on a ladder and possible nerve pinched. Pain controlled with baclofen ordered yesterday. Discussed IV abx until cx results and will obtain renal/bladder US today. Still with some reflux type symptoms and adding Protonix for extra relief. Continues with diarrhea and requesting to see GI while inpatient. Discussed chronic diarrhea and possible IBS. She has not tried metamucil or bulking agents in the past. Would be cautious with most recent possible partial obstruction but may be beneficial in upcoming weeks to start with in addition to full glass of water to help bulk up her stools. No fever, chills, chest pain, shortness of breath, nausea at this time. Tolerating full liquid diet but not many options -- will advance to low fiber today. Questions/concerns addressed. Review of Systems Review of Systems: All systems reviewed & are unremarkable except as noted in HPI & below Physical Exam Constitutional: WD/WN, vitals as above cooperative and comfortable; no acute distress Eyes: EOM intact bilaterally; no conjunctival abnormality ENMT: external ear and nose normal, oropharynx normal Neck: trachea midline, no thyromegaly normal visual inspection Respiratory: normal respiratory effort, lungs clear to auscultation no respiratory distress Cardiovascular: RRR, no murmur, no edema Gastrointestinal (Abdomen): Inspection/Auscultation: abdomen normal to inspection and normal bowel sounds; abdomen not distended Percussion/Palpation: + abdomen tender (suprapubic) and abdomen soft; no guarding and abdomen not rigid Musculoskeletal: no cyanosis or clubbing, extremities motor strength 5/5 numbness to light touch L groin/medial thigh Skin: no rashes, warm and dry Neurologic: moves all extremities and awake Psychiatric: Orientation: alert, oriented to person and cooperative Genitourinary: no CVA tenderness Results & Data Results & Data ([facility]) Vital Signs (Past 12 Hours) Vital Signs Temp Pulse Resp BP Pulse Ox 10/30/20 07:21 36.8 C 59 L 18 151/90 H 95 Laboratory Results 10/30/20 10/30/20 10/30/20 Range/Units Unknown 06:51 06:51 WBC 6.38 (4.8-10.8) K/uL RBC 4.50 (4.2-5.4) M/uL Hgb 13.4 (12.0-16.0) g/dL Hct 39.7 (37-47) % MCV 88.2 (80-100) fL MCH 29.8 (25-34) pg MCHC 33.8 (32-36) g/dL RDW Std Deviation 41.7 (36.4-46.3) fL RDW Coeff of [place] 12.9 (11.5-14.5) % Plt Count 231 (130-400) K/uL MPV 9.6 (7.4-10.4) fL Sodium 143 (136-145) mmol/L Potassium 3.9 D (3.5-5.1) mmol/L Chloride 113 H (98-107) mmol/L Carbon Dioxide 27 (21-32) mmol/L Anion Gap 4.0 (3-11) BUN 9 (7-18) mg/dl Creatinine 0.72 (0.6-1.2) mg/dl Est Cr Clr Drug Dosing 88.8 ml/min Est GFR ( Amer) 107.7 Est GFR (Non-Af Amer) 93.0 BUN/Creatinine Ratio 12.7 (10-20) Glucose 101 H (70-99) mg/dl Calcium 8.9 (8.5-10.1) mg/dl Magnesium 2.2 (1.8-2.4) mg/dl TSH 0.574 (0.300-4.500) uIu/ml Urine Color Yellow Urine Appearance Clear (Clear) Urine pH 5.5 (4.5-7.5) Ur Specific [place] 1.022 (1.000-1.030) Urine Protein Trace H (Negative) Urine Glucose (UA) Negative (Negative) Urine Ketones Negative (Negative) Urine Blood 2+ H (Negative) Urine Nitrite Negative (Negative) Urine Bilirubin Negative (Negative) Urine Urobilinogen Negative (Negative) Ur Leukocyte Esterase 1+ H (Negative) Urine WBC (Auto) >30 H (0-5) /hpf Urine RBC (Auto) 5-10 H (0-4) /hpf U Hyaline Cast (Auto) 1-5 (0-5) /lpf U Epithel Cells (Auto) 5-10 H (0-5) /lpf Urine Bacteria (Auto) 2+ H (Negative) Diagnostic Findings KUB IMPRESSION: Nonobstructive bowel gas pattern. PG Care Time/CCT Total # of Minutes Spent Total Time Spent with Patient: Total time spent is greater than 50% in coordination of care (as documented) at patient's floor/unit and/or counseling patient: Coding Level of Care Code 66021 Subseq Hosp Care Lvl 3 Diagnoses UTI (urinary tract infection) N39.0 SBO (small bowel obstruction) K56.609 HTN (hypertension) I10 Back pain M54.9 Diarrhea R19.7 Hyperlipidemia E78.5 Allergies T78.40XA DVT prophylaxis Z29.9
--- NOTE | 2020-10-30 13:49 | Ultrasound Report ---
US renal/blad retro comp HISTORY: 55 years-old Female hematuria, UTI, ?stone acute hematuria with urinary tract infection COMPARISON: CT abdomen pelvis 10/28/2020 TECHNIQUE: Multiple real-time sonographic images of the kidneys and urinary bladder were obtained ass essing grayscale appearance and color flow FINDINGS: Right kidney measures 12.5 cm in length. The left kidney measures 10.2 cm in length. No renal calculi , hydronephrosis or suspicious mass lesion. Cortical thickness appears normal. Cortical medullary dif ferentiation is preserved. Partial distention of the urinary bladder with bilateral ureteral jets. IMPRESSION: Unremarkable renal ultrasound. ACT 112: Negative or not required by law. The above report was generated using voice recognition software. It may contain grammatical, syntax o r spelling errors. Electronically signed by: Andrea Rajan M.D. 10/30/2020 1:47 PM
[2020-10-30] MEDS: cefTRIAXone SODIUM 2,000 MG in DEXTROSE 5% 50 ML IV SCH (14:01)
--- NOTE | 2020-10-30 14:53 | Gastrointestinal Consultation ---
Date of Consultation October 30, 2020 Assessment & Plan (1) RLQ abdominal pain: (2) Abnormal CT of the abdomen: (3) Diarrhea: Check Celiac panel now Check stool for C-diff, Enteric pathogens and fecal leukocytes Schedule colonoscopy as an outpatient in 2-3 weeks following treatment of UTI Further recommendations to follow above noted testing. History of Present Illness Reason for Consultation: Diarrhea Attending Physician: Ursula Waterman MD History of Present Illness Catherine Bush is a pleasant 55 yo CF who presented to the ER on 10/28/2020 with complaints of vomiting. She states that she had symptoms for 2-3 days prior to coming to the ER. She also complained of diarrhea and reports no solid BM's in the past year. She did report that she had vomited some blood at one point. Lab studies in the ER were unremarkable. She did undergo a CT scan of the Abd/pelvis and was noted to have right mid-abdomen bowel loops with air fluid levels, but no evidence of high grade SBO. She was noted to have a UTI and admitted and started on antibiotics. At the time that I saw her, she was feeling slightly better. She denies any obstructive symptoms. Repeat KUB's on consecutive days were normal. She states that she continues to have several liquid BM's per day. She denies any blood in her stools. She does complain of intermittent RLQ abdominal pain, non-radiating without alleviating or exacerbating factors. She denies eye pain, joint pain or skin rash. Her last colonoscopy was on 04/16/2013 and was normal to the terminal ileum. She has no further complaints. Allergies Allergy/AdvReac Type Severity Reaction Status Date / Time celecoxib Allergy Unknown GI SYMPTOMS Verified 10/28/20 11:12 mold Allergy Unknown Unknown Unverified 10/28/20 11:12 meloxicam [From Mobic] AdvReac Intermediate GI upset Unverified 10/28/20 11:12 venlafaxine [From Effexor] AdvReac Intermediate Dizziness Unverified 10/28/20 11:12 codeine AdvReac Mild N&V Verified 10/28/20 11:12 Home Medications Medication Instructions Recorded Confirmed Type albuterol sulfate 90 mcg/actuation 2 puffs INH Q6H PRN #8.5 gm 10/24/19 10/28/20 Rx aerosol inhaler acetaminophen 500 mg tablet 1,000 mg PO TID PRN 11/27/19 10/28/20 History fluticasone propionate 50 1 spray INTRANASAL DAILY #9.9 gm 04/02/20 10/28/20 Rx mcg/actuation nasal spray,suspension duloxetine 30 mg capsule,delayed 30 mg PO DAILY #30 cap 05/15/20 10/28/20 Rx release fexofenadine 180 mg tablet 180 mg PO DAILY tab 08/11/20 10/28/20 History hydrochlorothiazide 25 mg tablet 25 mg PO DAILY #90 tab 08/11/20 10/28/20 Rx losartan 25 mg tablet 25 mg PO DAILY #30 tab 08/11/20 10/28/20 Rx Patient History Medical History Back pain Duloxetine for pain control HTN (hypertension) Hyperlipidemia Raynaud's disease Surgical History Ankle fracture, right History of dilation and curettage History of laparoscopy History of oral surgery History of tonsillectomy History of tubal ligation History of vaginal hysterectomy Previous back surgery piriformis nevaeh 2017 Family History Sister Congestive heart failure dec 39 also HTN Hypertension Father Coronary heart disease Brother Valvular heart disease Denies family history of Ovarian cancer Prostate cancer Breast cancer Lung cancer Colorectal cancer Social History Smoking Status: Never smoker Second Hand Exposure: Yes (); Hx Alcohol Use: Yes Alcohol type: beer Alcohol Intake Frequency Comment: social Hx Substance Use: No Preferred Language: Luxembourgish Communication Ability: Effective Visual Impairment: No Limitations Hearing Ability: Normal Measuring Clerk Required: No Beliefs That Will Affect Care: None marital status: Current Living Situation: Spouse current occupational status: employed 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[employer] Feels Safe at Home: Yes Childhood Exposure to Second-Hand Smoke: No caffeine: Yes Dental Care, Regularly: Yes Physical Activity Frequency: Does not Exercise Seatbelt Use: always Sunscreen Use: Yes Assistive Devices: None Review of Systems Review of Systems: All systems reviewed & are unremarkable except as noted in HPI & below Physical Exam Constitutional: WD/WN, vitals as above Eyes: + anicteric sclerae ENMT: external ear and nose normal, oropharynx normal Neck: trachea midline, no thyromegaly Respiratory: normal respiratory effort, lungs clear to auscultation Cardiovascular: RRR, no murmur, no edema Gastrointestinal (Abdomen): Inspection/Auscultation: abdomen normal to inspection and normal bowel sounds; abdomen not distended Percussion/Palpation: + abdomen tender (RLQ) and abdomen soft Skin: no rashes, warm and dry Psychiatric: A+Ox3, euthymic affect Results & Data ([facility]) Vital Signs (Past 12 Hours) Vital Signs Temp Pulse Resp BP Pulse Ox 10/30/20 07:21 36.8 C 59 L 18 151/90 H 95 PG Care Time/CCT Total # of Minutes Spent Total Time Spent with Patient: Total time spent is greater than 50% in coordination of care (as documented) at patient's floor/unit and/or counseling patient: Coding Level of Care Code 34045 Office/OBS Consult Lvl 4 Diagnoses RLQ abdominal pain R10.[address] of the abdomen R93.5 Diarrhea R19.7
[2020-10-30] MEDS: PANTOprazole 40 MG TAB PO SCH (20:23)
[2020-10-31 07:52] LABS: BUN Creatinine Ratio 12.5 (10-20); Est GFR (African American) 99.3; Est GFR (Non-African American) 85.7; Potassium 3.8 mmol/L (3.5-5.1)
[2020-10-31] MEDS: DULoxetine HCL 30 MG CAP PO SCH (08:05)
[2020-10-31] MEDS: cefTRIAXone SODIUM 2,000 MG in DEXTROSE 5% 50 ML IV SCH (08:05)
[2020-10-31] MEDS: FAMOTIDINE 20 MG in SYRINGE 3 ML IV SCH (08:05)
[2020-10-31] MEDS: LOSARTAN POTASSIUM 25 MG TAB PO SCH (08:05)
[2020-10-31] MEDS: FLUTICASONE PROPIONATE NA SPR 16 GM BTL SCH (08:05)
[2020-10-31] MEDS: FEXOFENADINE HCL 180 MG TAB PO SCH (08:05)
[2020-10-31] MEDS: PANTOprazole 40 MG TAB PO SCH (08:05)
[2020-10-31] MEDS: BACLOFEN 10 MG TAB PO SCH (08:06)
[2020-10-31] MEDS: LIDOCAINE 5% 1 PATCH TD SCH (08:06)
--- NOTE | 2020-10-31 09:03 | Hospitalist Progress Note ---
Date of Service October 31, 2020 Assessment & Plan Admission and Anticipated Discharge Date Admission Date: October 28, 2020 Results & Data Results & Data ([facility]) Vital Signs (Past 12 Hours) Vital Signs Temp Pulse Resp BP Pulse Ox 10/31/20 07:30 37.2 C 72 18 132/77 99 10/30/20 22:32 36.8 C 63 16 126/69 92 Laboratory Results 10/31/20 10/30/20 10/30/20 Range/Units 06:41 Unknown 18:07 Sodium 141 (136-145) mmol/L Potassium 3.8 (3.5-5.1) mmol/L Chloride 108 H (98-107) mmol/L Carbon Dioxide 29 (21-32) mmol/L Anion Gap 4.0 (3-11) BUN 10 (7-18) mg/dl Creatinine 0.77 (0.6-1.2) mg/dl Est Cr Clr Drug Dosing 83.0 ml/min Est GFR ( Amer) 99.3 Est GFR (Non-Af Amer) 85.7 BUN/Creatinine Ratio 12.5 (10-20) Glucose 104 H (70-99) mg/dl Calcium 9.0 (8.5-10.1) mg/dl Urine Color Yellow Urine Appearance Clear (Clear) Urine pH 5.5 (4.5-7.5) Ur Specific [place] 1.022 (1.000-1.030) Urine Protein Trace H (Negative) Urine Glucose (UA) Negative (Negative) Urine Ketones Negative (Negative) Urine Blood 2+ H (Negative) Urine Nitrite Negative (Negative) Urine Bilirubin Negative (Negative) Urine Urobilinogen Negative (Negative) Ur Leukocyte Esterase 1+ H (Negative) Urine WBC (Auto) >30 H (0-5) /hpf Urine RBC (Auto) 5-10 H (0-4) /hpf U Hyaline Cast (Auto) 1-5 (0-5) /lpf U Epithel Cells (Auto) 5-10 H (0-5) /lpf Urine Bacteria (Auto) 2+ H (Negative) Stool Calprotectin Stl C. diff Tox B Gene Negative Cdiff Gene (Neg) IgA Tiss Transglutamin IgA Celiac Disease Interp 10/30/20 10/30/20 Range/Units 18:07 15:32 Sodium (136-145) mmol/L Potassium (3.5-5.1) mmol/L Chloride (98-107) mmol/L Carbon Dioxide (21-32) mmol/L Anion Gap (3-11) BUN (7-18) mg/dl Creatinine (0.6-1.2) mg/dl Est Cr Clr Drug Dosing ml/min Est GFR ( Amer) Est GFR (Non-Af Amer) BUN/Creatinine Ratio (10-20) Glucose (70-99) mg/dl Calcium (8.5-10.1) mg/dl Urine Color Urine Appearance (Clear) Urine pH (4.5-7.5) Ur Specific [place] (1.000-1.030) Urine Protein (Negative) Urine Glucose (UA) (Negative) Urine Ketones (Negative) Urine Blood (Negative) Urine Nitrite (Negative) Urine Bilirubin (Negative) Urine Urobilinogen (Negative) Ur Leukocyte Esterase (Negative) Urine WBC (Auto) (0-5) /hpf Urine RBC (Auto) (0-4) /hpf U Hyaline Cast (Auto) (0-5) /lpf U Epithel Cells (Auto) (0-5) /lpf Urine Bacteria (Auto) (Negative) Stool Calprotectin Pending Cancelled Stl C. diff Tox B Gene (Neg) IgA Pending Tiss Transglutamin IgA Pending Celiac Disease Interp Pending PG Care Time/CCT Total # of Minutes Spent Total Time Spent with Patient: Total time spent is greater than 50% in coordination of care (as documented) at patient's floor/unit and/or counseling patient: Coding
--- NOTE | 2020-10-31 11:44 | Gastroenterology Progress Note ---
Date of Service October 31, 2020 Assessment & Plan (1) Diarrhea: C-diff negative Remainder of stool studies pending. Celiac panel pending Outpatient colonoscopy (2) Abnormal CT of the abdomen: (3) Indigestion: Continue Pantoprazole 40 mg by mouth twice daily. Consider EGD as outpatient for further evaluation of symptoms. Avoid trigger foods which worsen symptoms. Admission and Anticipated Discharge Date Admission Date: October 28, 2020 Subjective Doing slightly better today. Still with mild RLQ abdominal pain, 2-3/10 in intensity, non-radiating. Still with liquid stools, 3 already today. Denies any fevers, chills, nausea, or vomiting. No blood in stools. Tolerating low fiber diet Review of Systems Review of Systems: All systems reviewed & are unremarkable except as noted in HPI & below Physical Exam Constitutional: well developed; no acute distress Eyes: + anicteric sclerae ENMT: Ears: no hearing impairment Respiratory: normal respiratory effort, lungs clear to auscultation Cardiovascular: RRR, no murmur, no edema Gastrointestinal (Abdomen): Inspection/Auscultation: abdomen normal to inspection and normal bowel sounds; abdomen not distended Percussion/Palpation: + abdomen tender (RLQ ) and abdomen soft Skin: no rashes, warm and dry Psychiatric: A+Ox3, euthymic affect Results & Data Results & Data ([facility]) Vital Signs (Past 12 Hours) Vital Signs Temp Pulse Resp BP Pulse Ox 10/31/20 07:30 37.2 C 72 18 132/77 99 PG Care Time/CCT Total # of Minutes Spent Total Time Spent with Patient: Total time spent is greater than 50% in coordination of care (as documented) at patient's floor/unit and/or counseling patient: Coding Level of Care Code 65893 Subseq Hosp Care Lvl 3 Diagnoses Diarrhea R19.[address] of the abdomen R93.5 Indigestion K30
--- NOTE | 2020-10-31 11:56 | Discharge Summary ---
Date of Service October 31, 2020 Admission HPI Per Admitting Provider 55yo F w/ hx of HTN & allergies who presents with partial SBO vs. ileus. She reports that she was in her usual state of health until Monday night/Monday morning when she began to have nausea and emesis after eating and drinking. She also reports some RLQ pain without radiation that has been ongoing and steadily worsening in nature. She notes that the pain is slightly worse when she eats or drinks something which causes to vomit. She has had multiple rounds of emesis and this morning had two swallows of water and two of coffee and had emesis with some mild/moderate blood tinge. She reports the vomitus was reddish and "more than pink." No coffee grounds with it. She has been having diarrhea for 6 months, and reports continued diarrhea during this time. She reports just a bit of diarrhea while in the ED; however, she is not passing any gas at this time. She endoreses some mild, subjective fevers and chills, and some GERD-type chest pain with emesis. Otherwise no chest pain, no shortness of breath, no dizziness. She had a hysterectomy in ~1994, but no other abdominal surgeries and no prior episodes of SBO. Admission Exam Per Admitting Provider Constitutional: WD/WN, vitals as above Eyes: EOM intact bilaterally; no conjunctival abnormality ENMT: external ear and nose normal, oropharynx normal Neck: trachea midline, no thyromegaly normal visual inspection Respiratory: normal respiratory effort, lungs clear to auscultation no respiratory distress Cardiovascular: RRR, no murmur, no edema Gastrointestinal (Abdomen): Inspection/Auscultation: abdomen normal to inspection and normal bowel sounds; abdomen not distended Percussion/Palpation: + abdomen tender (Minimally in RLQ) and abdomen soft; no guarding and abdomen not rigid Musculoskeletal: no cyanosis or clubbing, extremities motor strength 5/5 Skin: no rashes, warm and dry Neurologic: moves all extremities and awake Psychiatric: Orientation: alert, oriented to person and cooperative Principal Diagnosis UTI, Possible partial SBO vs Ileus, Diarrhea Discharge Exam Constitutional WD/WN, vitals as above cooperative and comfortable; no acute distress Eyes EOM intact bilaterally; no conjunctival abnormality ENMT external ear and nose normal, oropharynx normal Neck trachea midline, no thyromegaly normal visual inspection Respiratory normal respiratory effort, lungs clear to auscultation no respiratory distress Cardiovascular RRR, no murmur, no edema Gastrointestinal (Abdomen) Inspection/Auscultation: abdomen normal to inspection and normal bowel sounds; abdomen not distended Percussion/Palpation: + abdomen tender (suprapubic) and abdomen soft; no guarding and abdomen not rigid Musculoskeletal no cyanosis or clubbing, extremities motor strength 5/5 Skin no rashes, warm and dry Neurologic moves all extremities and awake Psychiatric Orientation: alert, oriented to person and cooperative Discharge Data Allergies Allergy/AdvReac Type Severity Reaction Status Date / Time celecoxib Allergy Unknown GI SYMPTOMS Verified 10/28/20 11:12 mold Allergy Unknown Unknown Unverified 10/28/20 11:12 meloxicam [From Mobic] AdvReac Intermediate GI upset Unverified 10/28/20 11:12 venlafaxine [From Effexor] AdvReac Intermediate Dizziness Unverified 10/28/20 11:12 codeine AdvReac Mild N&V Verified 10/28/20 11:12 Consultations 10/28/20 14:12 ED Decision to Admit Stat 10/30/20 13:15 Consult Gastroenterology Routine Ordered Studies 10/28/20 10:15 CT abd pelvis IV con only Stat KUB 10/29 KUB 10/30/20 13:00 US renal/blad retro comp Routine KUB Hospital Course (1) UTI (urinary tract infection): Admitted for possible ileus vs partial SBO, resolved with conservative treatment on repeat imaging UA on admission without infection but reported increased burning/urgency following lower output and repeat obtained Placed on ceftriaxone empirically and urine culture with group B strep and gram negative bacilli and patient feeling well enough for discharge and was placed on keflex to complete 7 day course. Will call if sensitivities show keflex ineffective WBC wnl, no fever although she states she typically runs on the lower side Renal Bladder US without abn Kidney function stable (2) SBO (small bowel obstruction): in patient w/ hx hysterectomy in 1994 and with chronic reported diarrhea following any meal CT a/p on 10/28 showed "minimally prominent right mid abdominal small bowel loops with air-fluid levels" consistent with possible ileus vs. partial SBO. Mild hematemesis is likely Emmy-Lopez in nature. No melena to indicate significant upper GI bleed. Treated conservatively, electrolyte replacement as needed Did not require NGT placement Pepcid IV BID to promote healing--> transitioned to Protonix 40mg PO BID and continued at discharge GI consulted given chronic diarrhea as well (no melena/hematochezia, no hx of UC or Crohns) Stool studies negative, cdiff negative Educated on low fiber diet Plans for EGD/colonoscopy as outpatient with Dr. Rashid within next couple of weeks Celiac panel pending at time of discharge (hx of allergies) (3) HTN (hypertension): BP elevated in setting of pain and then improved with re-initiation of her home BP medications which were initially held for dehydration/hypokalemia secondary to lack of PO intake [employer] Resumed both her losartan and HCTZ (1x dose 10/30) and K stable with continued lisinopril BP 132/77 prior to discharge (4) Back pain: Long-standing with prior piriformis surgery and some residual and ongoing left-sided sciatica pain and some left hip numbness. Continued duloxetine Added lidocaine patch, baclofen prn -- states relief and will have PCP appt next week with referral to pain management (appt Natalie Gentile November 02). Sent with rx for baclofen and lidocaine patches for now as they were effective at controlling her pain No loss bowel/bladder function Does report issues with work incident last week hanging curtain on a ladder with pain shooting up into her arm. Now with residual left groin numbness. ?pinced nerve (5) Diarrhea: Ongoing for 6 months. No blood, no melena. Being worked up as outpatient. Patient denies any specific food allergies or specific items that make diarrhea worse. "Ten minutes after I eat I'm in the bathroom" Deferred Imodium for now in the context of SBO Continue outpatient work-up with f/u with GI for outpatient scope/ further work- up Stool studies negative. Cdiff negative Celiac pending at d/c C-scope and EGD with Dr. Rashid in next 3 weeks (6) Hyperlipidemia: Not on any home statin. Most recent lipid panel August 2020 with elevated triglycerides 458 and cholesterol 231 Will need to discuss starting fenofibrate/statin with PCP at discharge given her chronic pain/myalgias but would benefit from initiation of statin therapy (7) Allergies: Chronic Controlled with Shona and flonase -- continued (8) DVT prophylaxis: SCDs - Low DVT risk per admission calculator Ambulation encouraged Discharged home. To have follow up with PCP next week and ref to pain management GI in next month Total Time Total Time Spent Total Time Spent (In Minutes): 60 Discharge Plan Discharge Items Patient Disposition: Home - Self-Care Reason For Visit: PARTIAL SBO Discharge Diagnosis: UTI, Ileus vs Partial SBO Condition on Discharge: Good Goals: You have been hospitalized for an acute medical problem. During your stay at [facility], we have made an effort to correct the problem that brought you to the hospital while keeping you as comfortable as possible. Medications were used to bring your condition under control and your discharge instructions will include directions for any medications you should take after leaving the hospital. Please make sure you see your Primary Care Provider as part of your follow up plan. Activity: Resume your previous activity Non-emergency contact: Primary Care Provider and [employer] Developer Call non-emergency contact if: you have any medication questions, your symptoms worsen and your pain is not controlled Follow-up/Referrals: Natalie Gentile PA-C [Physician Prospect Manager] - 11/02/20 10:00 am (has appointment beginning of november) Lux Rashid DO [Physician] - 12/24/20 10:30 am (Call [phone]. Option #3 December 24 at 10:30am) Hosea Fuller DO [Primary Care Provider] - Diet: Heart Healthy and Low Fiber Addtl Attending Provider Instructions: You have been hospitalized and found to have possible ileus vs partial small bowel obstruction. This was treated conservatively and repeat imaging without obstruction. You also have chronic diarrhea and stool was checked which was negative for c.diff, e.coli and shiga toxin. Celiac panel pending at time of discharge and may take a week for final results. You have been evaluated by GI and plans for outpatient EGD and colonoscopy in the upcoming weeks. They will call you for an appointment. You are to continue with Protonix 40mg by mouth TWICE daily. Please monitor for increased diarrhea/concerns for c.diff. You were found to have a UTI while in the hospital. You were treated empirically with IV antibiotics and are being sent with a prescription for Keflex to continue for another 5 days to treat this infection for a total of 7 days. Final culture cultures are not back yet, and you will be call if you need this antibiotic changed at all. You should continue follow up with Natalie Gentile next week for follow up and referral for pain management. You have been sent prescriptions for lidocaine patches and baclofen to use as needed. You should remain off work until cleared by your PCP. Please return to the emergency department with any worsening abdominal pain, nausea, inability to keep up with oral intake or for any other symptoms that are concerning for you. It has been a pleasure being a part of the medical team providing for you while you have been int [facility]. Take care! Pending Studies at Discharge: Yes Studies:: Celiac Panel, Urine culture/sensitivities Stand-Alone Forms: [facility], Work/School Release (Inpt) Medications and DC Order Prescriptions: New baclofen 10 mg Tablet 10 mg PO BID PRN (Reason: pain, muscle spasm) Qty: 12 RF: 0 pantoprazole 40 mg Tablet,Delayed Release (Dr/Ec) 40 mg PO BID 30 Days Qty: 60 RF: 0 lidocaine 5 % Adhesive Patch,Medicated 1 patch transdermal QAM Qty: 15 RF: 0 cephalexin 500 mg capsule 500 mg PO QID 5 Days Qty: 20 RF: 0 Continued fluticasone propionate 50 mcg/actuation spray,suspension 1 spray intranasal DAILY Qty: 9.9 RF: 6 duloxetine 30 mg capsule,delayed release(DR/EC) 30 mg PO DAILY Qty: 30 RF: 6 albuterol sulfate 90 mcg/actuation HFA aerosol inhaler 2 puffs INH Q6H PRN (Reason: bronchospasm) Qty: 8.5 RF: 3 hydrochlorothiazide 25 mg tablet 25 mg PO DAILY Qty: 90 RF: 1 losartan 25 mg tablet 25 mg PO DAILY Qty: 30 RF: 6 acetaminophen 500 mg tablet 1,000 mg PO TID PRN (Reason: Pain) RF: 0 fexofenadine 180 mg tablet 180 mg PO DAILY RF: 0 Discharge Orders: Discharge Order (Routine); Ordered 10/31/20 Ordered By: Shira Cruz Admission Data Admit Date/Time: 10/28/20 14:59 Attending Provider: Ursula Waterman Admit Provider: Rayray Ayala Primary Care Provider: Hosea Fuller Other Providers: Rayray Ayala ; Lux Rashid Other Interventions: Discharge Summary Assessment (RN) Last Done: 10/31/20 12:57 Supervising Physician Co-Signing Physician Notes DELANEY Supervision Note: I personally saw and examined the patient. I verified all branch points and agree with DELANEY Cruz with the following exceptions and/or additions: Patient feeling much better, tolerating regular low fiber diet. No abdominal pain, passing gas. No chest pain or shortness of breath Has lower buttock pain as noted above Vitals reviewed Gen: AAOx3, NAD HEENT: Anicteric sclerae, EOMI CV: RRR no mgr nl S1S2 Pulm: CTAB no wcr Abd: +BS soft NT ND no masses or hernias Ext: No edema, 2+ DP pulses Skin: No rashes, warm/dry Neuro: Full strength throughout Laboratory values reviewed 55-year-old female here with ileus versus partial SBO, now resolved, UTI, acute on chronic back pain. Stable for discharge home with close follow-up with GI Coding Level of Care Code D/C Day Management >30 mins Diagnoses UTI (urinary tract infection) N39.0 SBO (small bowel obstruction) K56.609 HTN (hypertension) I10 Back pain M54.9 Diarrhea R19.7 Hyperlipidemia E78.5 Allergies T78.40XA DVT prophylaxis Z29.9
[2020-11-03 01:21] LABS: IgA Serum 172 mg/dL (47-310); Tis Trans IgA 1 U/mL
== END 2020-10-31 15:30 | disposition home or self-care (01) ==
LOC: ED 09:48 → 3W 14:59 → SUATTDRO 14:59 → 3W 17:30

== ENCOUNTER 2023-12-11 10:08 | Inpatient (IN) ==
--- NOTE | 2023-12-11 10:27 | Emergency Department Note ---
Impression & Plan Acute diverticulitis, Abdominal pain, Leukocytosis ED Provider Note NAME: REMA CROWE AGE: 58 SEX: F : 1965 ARRIVES VIA: Walk-In INFORMANT: Patient ED PROVIDER(S): Jermain Lama MD CHIEF COMPLAINT: Abdominal pain PLAN: Disposition: Admit MEDICAL DECISION MAKING: The patient is a pleasant 58-year-old woman with a past medical history of IBS, history of possible partial bowel obstruction versus ileus in 2020, Smith's esophagus, GERD, hypertension, hyperlipidemia who presents to the emergency department via walk-in accompanied by her for evaluation of worsening abdominal pain, distention with nausea over the past several days which she felt was reminiscent of her prior admission in 2020 where she had a possible partial bowel obstruction versus ileus. She reports she has continued to have diarrhea which is somewhat chronic for her in the setting of IBS but feels as the volume is less than usual. She reports her acid reflux is also acting up and feels constantly nauseated. She has any fevers, chills, cough congestion, chest pain, shortness of breath. On evaluation the patient is no acute distress, afebrile with blood pressure 160s/80s and vital signs otherwise stable. She appears clinically dry. She has mild lower abdominal tenderness without guarding or rebound. WBC 13.3 K with neutrophil predominance though no left shift. H/H and platelets within normal limits. Chemistry without metabolic acidosis per electrolytes and FTs unremarkable. Lipase is not elevated. UA without evidence of infection. C. difficile stool PCR negative. BioFire stool PCR pending. Acute sigmoid diverticulitis without evidence of perforation. Description of possible small linear intramural abscess at the mid sigmoid colon is noted which may also represent submucosal edema. This is too small for percutaneous drainage. Blood cultures ordered and initial treatment with IV Zosyn. The patient agrees with plan for admission Case was d/w Dr. Chan, [facility] hospitalist who will evaluate the patient for admission. Further management per admitting team. Triage Nursing notes reviewed and agree them. Prior/external medical records reviewed Vital Signs: reviewed Differential diagnosis: Gastroenteritis, food borne illness, infections, appendicitis, diverticulitis, inflammatory bowel disease, obstruction, GI bleed, biliary pathology, volvulus, as well as other pathologies. ER treatment provided: See below. Diagnostics interpreted by me: ECG: Sinus rhythm, 89 bpm, occasional PVCs, incomplete right bundle branch block, LVH, no overt ST elevation or depression, QTc 474, QRS 104. Cardiac Monitoring: An order for continuous cardiac monitoring was placed and demonstrated Sinus rhythm, 89 bpm, occasional PVCs. Laboratory studies: See below Imaging studies: See below Consultation(s): Case was d/w Dr. Chan, [facility] hospitalist who will evaluate the patient for admission. HPI: The patient is a pleasant 58-year-old woman with a past medical history of IBS, history of possible partial bowel obstruction versus ileus in 2020, Smith's esophagus, GERD, hypertension, hyperlipidemia who presents to the emergency department via walk-in accompanied by her for evaluation of worsening abdominal pain, distention with nausea over the past several days which she felt was reminiscent of her prior admission in 2020 where she had a possible partial bowel obstruction versus ileus. She reports she has continued to have diarrhea which is somewhat chronic for her in the setting of IBS but feels as the volume is less than usual. She reports her acid reflux is also acting up and feels constantly nauseated. She has any fevers, chills, cough congestion, chest pain, shortness of breath. ROS: See above HPI for pertinent positives & negatives. A total of 10 systems reviewed and were otherwise negative. VITALS:See Below PHYSICAL EXAMINATION: GENERAL: Awake, alert, in no distress HENT: Normocephalic, atraumatic. Oropharynx with dry mucous membranes and otherwise unremarkable. EYES: Normal conjunctiva. Sclera non-icteric. NECK: Supple. No nuchal rigidity. FROM. No JVD. RESPIRATORY: Clear to auscultation. CARDIAC: Regular rate, normal rhythm. Extremities warm and well perfused. Pulses equal. ABDOMEN: Soft, non-distended. Mild lower abdominal tenderness to palpation. No rebound or guarding. No masses. RECTAL: Deferred. MUSCULOSKELETAL: Chest examination reveals no tenderness. The back is symmetrical on inspection without obvious abnormality. There is no CVA tenderness to palpation. No joint edema. LOWER EXTREMITIES: Calves are equal size bilaterally and non-tender. No edema. No discoloration. NEURO: Normal sensorium. No sensory or motor deficits noted. SKIN: No rash or jaundice noted. Jermain Lama MD Past Med/Surg History Medical History Benign essential tremor Smith esophagus Myofascial pain GERD (gastroesophageal reflux disease) Piriformis syndrome of left side Macular degeneration of both eyes Asthma allergy induced--inhaler prn Allergies SBO (small bowel obstruction) admitted 10/2020 for probable SBO Raynaud's disease Hyperlipidemia Back pain Duloxetine for pain control HTN (hypertension) Surgical History History of esophagogastroduodenoscopy (EGD) last 11/20/20 @ [facility] History of open reduction and internal fixation (ORIF) procedure right ankle--hardware in place History of arthroscopy of right knee meniscus repair Status post epidural steroid injection History of colposcopy with cervical biopsy History of colonoscopy last 11/20/20 @ [facility] History of tooth extraction History of wisdom tooth extraction History of tonsillectomy and adenoidectomy Previous back surgery piriformis suglianne 2017 History of vaginal hysterectomy History of tubal ligation History of laparoscopy History of dilation and curettage x2 Family History Sister Congestive heart failure aug also HTN Hypertension Father , age 82 Coronary heart disease Family history of reaction to anesthesia "spinals have lingered in him for awhile" Family history of diabetes mellitus Brother , complications of COVID 19 Valvular heart disease Denies family history of Ovarian cancer Prostate cancer Breast cancer Lung cancer Colorectal cancer Social History Smoking Status: Never smoker Second Hand Exposure: No; Do You Dip or Chew Tobacco: No; Hx Alcohol Use: Yes Alcohol type: beer Alcohol Intake Frequency Comment: social Hx Substance Use: No Preferred Language: Vietnamese Communication Ability: Effective Visual Impairment: No Limitations Hearing Ability: Normal Clinical Applications Specialist Required: No Beliefs That Will Affect Care: None marital status: Current Living Situation: Spouse current occupational status: employed 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[employer] [facility] Other Information That Helps Us Care for You: No Feels Safe at Home: Yes Safety Concerns: Feels Safe At This Time Childhood Exposure to Second-Hand Smoke: No caffeine: Yes Dental Care, Regularly: Yes Physical Activity Frequency: Does not Exercise Seatbelt Use: always Sunscreen Use: Yes Assistive Devices: Contacts Allergies Allergies Allergy/AdvReac Type Severity Reaction Status Date / Time celecoxib Allergy Intermediate GI SYMPTOMS Verified 12/11/23 13:56 meloxicam [From Mobic] Allergy Intermediate GI upset Verified 12/11/23 13:56 mold Allergy Mild "sneezy, Verified 12/11/23 13:56 watery eyes" venlafaxine [From Effexor] AdvReac Intermediate Dizziness Verified 12/11/23 13:56 codeine AdvReac Mild N&V Verified 12/11/23 13:56 Home Meds Home Medications Medication Instructions Recorded Confirmed acetaminophen 500 mg tablet 1,000 mg PO TID PRN Pain 11/27/19 12/11/23 dicyclomine 10 mg capsule 10 mg PO TID 12/11/23 12/11/23 duloxetine 60 mg capsule,delayed 60 mg PO QAM 12/11/23 12/11/23 release spironolactone 25 mg tablet 25 mg PO BID 12/11/23 12/11/23 Previous Rx's Medication Instructions Recorded amlodipine 10 mg tablet 10 mg PO QAM #90 tabs 12/21/22 pantoprazole 40 mg tablet,delayed 40 mg PO BID #60 tabs 04/11/23 release albuterol sulfate 90 mcg/actuation 2 puff inhalation Q6H PRN 08/02/23 aerosol inhaler bronchospasm #8.5 grams hydrochlorothiazide 12.5 mg tablet 12.5 mg PO QAM #90 tabs 09/20/23 fluticasone furoate 100 1 inh inhalation DAILY asthma due 09/29/23 mcg-vilanterol 25 mcg/dose to allergies #60 ea inhalation powder (Breo Ellipta) montelukast 10 mg tablet 10 mg PO QAM #90 tabs 09/29/23 (Singulair) fluticasone propionate 50 2 spray intranasal DAILY #30 mL 11/22/23 mcg/actuation nasal spray,suspension Results & Data (ED) Vital Signs Vital Signs - 24 hr 12/11/23 10:15 12/11/23 12:16 Temperature 36.1 C L Temperature Source Temporal Artery Scan Pulse Rate 85 Pulse Rate [Right Finger] 92 H Pulse Rhythm [Right Finger] Regular Pulse Strength [Right Finger] Normal Respiratory Rate 18 16 Respiratory Effort / Characteristics Non-Labored Non-Labored Respiratory Depth Normal Normal Respiratory Pattern Regular Regular Blood Pressure 169/83 H Blood Pressure [Right Arm] 151/117 H Blood Pressure Mean 111 Blood Pressure Mean [Right Arm] 128 Blood Pressure Position [Right Arm] Lying Pulse Oximetry 100 96 Oxygen Delivery Method Room Air Room Air Sepsis Recent Fever Within 48 Hours No Sepsis New/Unexplained Change in Mental Status N/A Sepsis Action Taken by Nursing No Action Required Laboratory Data Attestation: I reviewed the patient's lab results. 12/11/23 10:36 12/11/23 10:36 Lab Results 12/11/23 12/11/23 Range/Units 10:36 11:43 WBC 13.32 H (4.8-10.8) K/ul RBC 5.22 (4.20-5.40) M/uL Hgb 15.5 (12.0-16.0) g/dl Hct 44.8 (37.0-47.0) % MCV 85.8 (80.0-100.0) fL MCH 29.7 (25.0-34.0) pg MCHC 34.6 (32.0-36.0) g/dL RDW Std Deviation 38.3 (36.4-46.3) fL RDW Coeff of [place] 12.2 (11.5-14.5) % Plt Count 321 (130-400) K/uL MPV 9.6 (9.4-12.4) fL Immature Gran % (Auto) 0.3 % Neut % (Auto) 81.8 % Lymph % (Auto) 9.9 % [place] % (Auto) 7.6 % Eos % (Auto) 0.1 % Baso % (Auto) 0.3 % Neut # (Auto) 10.90 H (1.40-6.50) K/uL Lymph # (Auto) 1.32 (1.20-3.40) K/uL [place] # (Auto) 1.01 H (0.11-0.59) K/uL Eos # (Auto) 0.01 (0.00-0.50) K/uL Baso # (Auto) 0.04 (0.00-0.20) K/uL Immature Gran # (Auto) 0.04 (0.01-0.20) K/uL Sodium 137 (136-145) mmol/L Potassium 3.4 L (3.5-5.1) mmol/L Chloride 100 (98-107) mmol/L Carbon Dioxide 28 (21-32) mmol/L Anion Gap 9 (3-11) BUN 9 (6-23) mg/dl Creatinine 0.67 (0.6-1.2) mg/dl Est Cr Clr Drug Dosing 90.4 ml/min Est GFR ( Amer) 110.7 ml/min Est GFR (Non-Af Amer) 95.5 ml/min BUN/Creatinine Ratio 13.4 (10-20) Glucose 124 H (70-99(Fasting)) mg/dl Calcium 10.1 (8.6-10.3) mg/dl Total Bilirubin 0.6 (0.2-1.0) mg/dl AST 17 (13-39) U/L ALT 21 (7-52) U/L Alkaline Phosphatase 72 (34-104) U/L Total Protein 7.7 (6.0-8.3) gm/dl Albumin 4.8 (3.4-5.0) gm/dl Globulin 2.9 (2.5-4.0) gm/dl Albumin/Globulin Ratio 1.7 (0.9-2) Lipase 14 (11-82) U/L Urine Color Yellow Urine Appearance Clear (Clear) Urine pH 6.0 (4.5-7.5) Ur Specific [place] 1.012 (1.000-1.030) Urine Protein Negative (Negative) Urine Glucose (UA) Negative (Negative) Urine Ketones Negative (Negative) Urine Blood Negative (Negative) Urine Nitrite Negative (Negative) Urine Bilirubin Negative (Negative) Urine Urobilinogen Negative (Negative) Ur Leukocyte Esterase Negative (Negative) Ur Yeast w Hyphae Not Reportable Stl C. cayetanensis PCR Not Detected (NotDetected) Stool Rotavirus A PCR Not Detected (NotDetected) Stl Adenov F 40/41 PCR Not Detected (NotDetected) Stool Astrovirus (PCR) Not Detected (NotDetected) Stool Campylobacter PCR Not Detected (NotDetected) Stl C. diff Tox B Gene Negative Cdiff Gene (Neg) Stool Cryptosporidium PCR Not Detected (NotDetected) Stl E.coli Shiga Tox PCR Not Detected (NotDetected) Stl Enterotoxigenic E PCR Not Detected (NotDetected) Stool EPEC (PCR) Not Detected (NotDetected) Stool EAEC (PCR) Not Detected (NotDetected) Stl E. histolytica PCR Not Detected (NotDetected) Stool Giardia Lamblia PCR Not Detected (NotDetected) Stool Salmonella PCR Not Detected (NotDetected) Stool Sapovirus (PCR) Not Detected (NotDetected) Stl P. shigelloides PCR Not Detected (NotDetected) Stl Shigella/EIEC PCR Not Detected (NotDetected) St Y.enterocolitica PCR Not Detected (NotDetected) Stool Vibrio (PCR) Not Detected (NotDetected) Stl Vibrio cholerae PCR Not Detected (NotDetected) Stl Norovirus GI/GII PCR Not Detected (NotDetected) Administered Medications Dicyclomine HCl (Dicyclomine Hcl 10 Mg Cap) 10 mg PO TID [facility] Stop: 01/10/24 20:59 Last Admin: 12/11/23 21:20 Dose: 10 mg Documented By: [facility] Enoxaparin Sodium (Enoxaparin Inj 40 Mg/0.4 Ml Syr) 40 mg SQ QPM [facility] Stop: 01/10/24 20:59 Last Admin: 12/11/23 21:19 Dose: 40 mg Documented By: [facility] Lactated Ringer's (Lr) 1,000 mls @ 125 mls/hr IV .Q8H [facility] Stop: 01/10/24 15:08 Last Admin: 12/11/23 16:21 Dose: 125 mls/hr Documented By: [facility] Piperacillin Sod/Tazobactam (Sod 4.5 gm/ Dextrose) 100 mls @ 25 mls/hr IV Q8H [facility]; Protocol Stop: 12/21/23 19:59 Last Admin: 12/11/23 21:19 Dose: 25 mls/hr Documented By: [facility] Pantoprazole Sodium 40 mg/ (Syringe) 10 mls @ 5 mls/min IV BID [facility] Stop: 01/10/24 20:59 Last Admin: 12/11/23 20:34 Dose: 5 mls/min Documented By: [facility] Morphine Sulfate (Morphine Sulfate 2 Mg/Ml Carp) 2 mg IV Q3H PRN PRN Reason: Pain (1,2,3,4,5) & Pre PT Stop: 12/25/23 15:08 Last Admin: 12/11/23 20:34 Dose: 2 mg Documented By: ISAIAS Spironolactone (Spironolactone 25 Mg Tab) 25 mg PO BID JAMES Stop: 01/10/24 20:59 Last Admin: 12/11/23 21:19 Dose: 25 mg Documented By: [place] Discontinued Medications Dicyclomine HCl (Dicyclomine Hcl 10 Mg/Ml 2 Ml Amp/Vial) 20 mg IM NOW ONE Stop: 12/11/23 11:12 Last Admin: 12/11/23 11:34 Dose: 20 mg Documented By: [facility] Sodium Chloride (Nss) 1,000 mls @ 999 mls/hr IV .Q1H1M ONE Stop: 12/11/23 11:26 Last Infusion: 12/11/23 12:36 Dose: Infused [place]ed By: [facility] Admin: 12/11/23 10:56 Dose: 999 mls/hr Documented By: CHRISTINE Acetaminophen (Ofirmev) 1,000 mg in 100 mls @ 400 mls/hr IV NOW STA Stop: 12/11/23 11:26 Last Infusion: 12/11/23 12:35 Dose: Infused Documented By: [facility] Admin: 12/11/23 11:39 Dose: 400 mls/hr Documented By: [facility] Famotidine (Pepcid 20mg Iv Push) 20 mg in 5 mls @ 2.5 mls/min IV NOW STA Stop: 12/11/23 11:13 Last Admin: 12/11/23 11:31 Dose: 2.5 mls/min Documented By: [facility] Piperacillin Sod/Tazobactam (Sod 4.5 gm/ Dextrose) 100 mls @ 200 mls/hr IV NOW ONE; Protocol Stop: 12/11/23 14:03 Last Infusion: 12/11/23 16:05 Dose: Infused Documented By: [facility] Admin: 12/11/23 15:33 Dose: 200 mls/hr Documented By: [facility] Ioversol (Optiray 320 100ml) 94 ml IV ONCE ONE Stop: 12/11/23 12:49 Last Admin: 12/11/23 12:49 Dose: 94 ml Documented By: JOSSELINE Morphine Sulfate (Morphine Sulfate 2 Mg/Ml Carp) 2 mg IV NOW STA Stop: 12/11/23 15:09 Last Admin: 12/11/23 16:20 Dose: 2 mg Documented By: [facility] Ondansetron HCl (Ondansetron Inj 2 Mg/Ml 2 Ml Vial) 4 mg IV NOW STA Stop: 12/11/23 11:14 Last Admin: 12/11/23 11:33 Dose: 4 mg Documented By: [facility] Imaging Data Radiologist's Impression: Abdomen/Pelvis CT 12/11/23 12:[address] WITH IV CONTRAST CT DOSE: 1174.44 mGy.cm HISTORY: Lower abd pain nausea TECHNIQUE: Multiaxial CT images of the abdomen and pelvis were performed following the use of intravenous contrast. A dose lowering technique was utilized adhering to the principles of ALARA. COMPARISON STUDY: Abdomen and pelvis CT 03/16/2023. FINDINGS: Mild dependent changes seen at the lung bases. No pneumoperitoneum. No pneumatosis. No acute fractures. The liver, gallbladder, spleen, adrenal glands, pancreas, and kidneys are unremarkable. No hydronephrosis. Mild bilateral perinephric edema. This is likely chronic. The main portal vein is patent. Mild calcified plaque within the normal caliber abdominal aorta. There is a left circumaortic renal vein. No retroperitoneal or pelvic lymphadenopathy. Trace pelvic free fluid. Prior hysterectomy. Mildly distended bladder. No bladder wall thickening. Multiple colonic diverticula. There is an inflamed diverticulum at the mid sigmoid colon with pericolonic fat stranding and mild bowel wall thickening. This is consistent with acute diverticulitis. No perforation at this time. There is possible small developing linear intramural abscess within the mid sigmoid colon best seen on image 291 measuring approximately 3.1 x 0.7 cm. This could represent submucosal edema. This is too small for percutaneous drainage. Mild thickening along the left ovary is likely reactive. No evidence for a bowel obstruction. Normal appendix. IMPRESSION: 1. Acute sigmoid diverticulitis. No perforation at this time. 2. There is a possible small linear intramural abscess at the mid sigmoid colon which could represent submucosal edema. This is too small for percutaneous drainage. 3. Normal appendix. ACT 112: Negative or not required by law. Electronically signed by: Ty Gibbs M.D. 12/11/2023 1:18 PM Discharge Plan Visit Data Chief Complaint: Abdominal Pain Stated Complaint: LOWER ABD PAIN ED Provider: Jermain Lama Discharge Problem: Acute diverticulitis, Abdominal pain, Leukocytosis Patient Disposition: Admitted As Inpatient Discharge Instructions Interventions: ED Discharge Assessment Last Done: 12/11/23 14:45 Discharge Problem: Abdominal pain Qualifiers: Abdominal location: left lower quadrant Qualified Code(s): R10.32 - Left lower quadrant pain Leukocytosis Qualifiers: Leukocytosis type: unspecified Qualified Code(s): D72.829 - Elevated white blood cell count, unspecified
[2023-12-11 10:54] LABS: Basophils # (auto) 0.04 K/uL (0.00-0.20); Basophils % (auto) 0.3 %; Eosinophils # (auto) 0.01 K/uL (0.00-0.50); Eosinophils % (auto) 0.1 %; Hematocrit (blood only) 44.8 % (37.0-47.0); Hemoglobin 15.5 g/dl (12.0-16.0); Immature Granulocytes # (auto) 0.04 K/uL (0.01-0.20); Immature Granulocytes % (auto) 0.3 %; Lymphocytes # (auto) 1.32 K/uL (1.20-3.40); Lymphocytes % (auto) 9.9 %; Mean Corpuscular Hemoglobin 29.7 pg (25.0-34.0); Mean Corpuscular Hgb Conc 34.6 g/dL (32.0-36.0); Mean Corpuscular Volume 85.8 fL (80.0-100.0); Mean Platelet Volume 9.6 fL (9.4-12.4); Monocytes # (auto) 1.01 K/uL (0.11-0.59); Monocytes % (auto) 7.6 %; Neutrophils % (auto) 81.8 %; Platelet Count 321 K/uL (130-400); RDW Coefficient of Variation 12.2 % (11.5-14.5); RDW Standard Deviation 38.3 fL (36.4-46.3); Red Blood Count 5.22 M/uL (4.20-5.40); White Blood Count 13.32 K/ul (4.8-10.8)
[2023-12-11] MEDS: SODIUM CHLORIDE 0.9% 1,000 ML IV ONE (10:56)
[2023-12-11 11:09] LABS: Albumin Level 4.8 gm/dl (3.4-5.0); Bilirubin,Total 0.6 mg/dl (0.2-1.0); Calcium 10.1 mg/dl (8.6-10.3); Potassium 3.4 mmol/L (3.5-5.1)
[2023-12-11 11:16] LABS: Albumin Globulin Ratio 1.7 (0.9-2); BUN Creatinine Ratio 13.4 (10-20); Creatinine Clr Calc Pharmacy 90.4 ml/min; Est GFR (African American) 110.7 ml/min; Est GFR (Non-African American) 95.5 ml/min; Globulin 2.9 gm/dl (2.5-4.0); Total Protein 7.7 gm/dl (6.0-8.3)
[2023-12-11] MEDS: FAMOTIDINE 20MG IV PUSH 20 MG/5 ML SYR IV STA (11:31)
[2023-12-11] MEDS: ONDANSETRON INJ 2 MG/ML 2 ML VIAL IV STA (11:33)
[2023-12-11] MEDS: DICYCLOMINE HCL 10 MG/ML 2 ML AMP/VIAL IM ONE (11:34)
[2023-12-11] MEDS: ACETAMINOPHEN 1,000 MG/100 ML VIAL IV STA (11:39)
[2023-12-11 12:40] LABS: Appearance Urine Clear (Clear); Bilirubin Urine Negative (Negative); Blood Urine Negative (Negative); Color Urine Yellow; Glucose Urine UA Negative (Negative); Ketones Urine Negative (Negative); Leukocyte Esterase Urine Negative (Negative); Nitrite Urine Negative (Negative); Protein Urine Negative (Negative); Specific Gravity Urine 1.012 (1.000-1.030); Urobilinogen Urine Negative (Negative)
[2023-12-11] MEDS: OPTIRAY 320 100ml IV ONE (12:49)
--- NOTE | 2023-12-11 13:20 | CT Scan Report ---
ABDOMEN AND PELVIS CT WITH IV CONTRAST CT DOSE: 1174.44 mGy.cm HISTORY: Lower abd pain nausea TECHNIQUE: Multiaxial CT images of the abdomen and pelvis were performed following the use of intrave nous contrast. A dose lowering technique was utilized adhering to the principles of ALARA. COMPARISON STUDY: Abdomen and pelvis CT 03/16/2023. FINDINGS: Mild dependent changes seen at the lung bases. No pneumoperitoneum. No pneumatosis. No acut e fractures. The liver, gallbladder, spleen, adrenal glands, pancreas, and kidneys are unremarkable. No hydronephrosis. Mild bilateral perinephric edema. This is likely chronic. The main portal vein is patent. Mild calcified plaque within the normal caliber abdominal aorta. There is a left circumaortic renal vein. No retroperitoneal or pelvic lymphadenopathy. Trace pelvic free fluid. Prior hysterectom y. Mildly distended bladder. No bladder wall thickening. Multiple colonic diverticula. There is an in flamed diverticulum at the mid sigmoid colon with pericolonic fat stranding and mild bowel wall thick ening. This is consistent with acute diverticulitis. No perforation at this time. There is possible s mall developing linear intramural abscess within the mid sigmoid colon best seen on image 291 measuri ng approximately 3.1 x 0.7 cm. This could represent submucosal edema. This is too small for percutane ous drainage. Mild thickening along the left ovary is likely reactive. No evidence for a bowel obstru ction. Normal appendix. IMPRESSION: 1. Acute sigmoid diverticulitis. No perforation at this time. 2. There is a possible small linear intramural abscess at the mid sigmoid colon which could represent submucosal edema. This is too small for percutaneous drainage. 3. Normal appendix. ACT 112: Negative or not required by law. Electronically signed by: Ty Gibbs M.D. 12/11/2023 1:18 PM
[2023-12-11 13:51] LABS: Adenovirus F 40/41 PCR Not Detected (NotDetected); Astrovirus PCR Not Detected (NotDetected); Campylobacter PCR Not Detected (NotDetected); Cryptosporidium PCR Not Detected (NotDetected); Cyclospora cayetanensis PCR Not Detected (NotDetected); Entamoeba histolytica PCR Not Detected (NotDetected); Enteroaggregative E.coli(EAEC) Not Detected (NotDetected); Enteropathogenic E.coli (EPEC) Not Detected (NotDetected); Enterotoxigenic E.coli (ETEC) Not Detected (NotDetected); Giardia lamblia PCR Not Detected (NotDetected); Norovirus GI/GII PCR Not Detected (NotDetected); Plesiomonas shigelloides PCR Not Detected (NotDetected); Rotavirus A PCR Not Detected (NotDetected); Salmonella PCR Not Detected (NotDetected); Sapovirus PCR Not Detected (NotDetected); Shiga-like Toxin E.coli (STEC) Not Detected (NotDetected); Shigella/Enteroinvasive E.coli Not Detected (NotDetected); Vibrio cholerae PCR Not Detected (NotDetected); Vibrio species PCR Not Detected (NotDetected); Yersinia enterocolitica PCR Not Detected (NotDetected)
--- NOTE | 2023-12-11 14:24 | History & Physical Report ---
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 Symptoms started Monday (3 days ago) feeling like her stomach was full all the time. This tuned into abdominal pain 2 days ago with a constant ache, current severity 8/10, no radiation, worse with coughing, no association with food but she also hasn't been eating much, associated feeling full all the time. Today she worked for a couple of hours but the pain got worse and with her history of small bowel obstruction she decided to come to the ER. No fever, chills or urinary symptoms. She has IBS usually with diarrhea. No prior episodes of diverticulitis. Prior colonoscopy with Dr Rashid 2020. History of small bowel obstruction. Allergies Allergy/AdvReac Type Severity Reaction Status Date / Time celecoxib Allergy Intermediate GI SYMPTOMS Verified 12/11/23 13:56 meloxicam [From Mobic] Allergy Intermediate GI upset Verified 12/11/23 13:56 mold Allergy Mild "sneezy, Verified 12/11/23 13:56 watery eyes" venlafaxine [From Effexor] AdvReac Intermediate Dizziness Verified 12/11/23 13:56 codeine AdvReac Mild N&V Verified 12/11/23 13:56 Home Medications Medication Instructions Recorded Confirmed Type acetaminophen 500 mg tablet 1,000 mg PO TID PRN Pain 11/27/19 12/11/23 History amlodipine 10 mg tablet 10 mg PO QAM #90 tabs 12/21/22 12/11/23 Rx pantoprazole 40 mg tablet,delayed 40 mg PO BID #60 tabs 04/11/23 12/11/23 Rx release albuterol sulfate 90 mcg/actuation 2 puff inhalation Q6H PRN 08/02/23 12/11/23 Rx aerosol inhaler bronchospasm #8.5 grams hydrochlorothiazide 12.5 mg tablet 12.5 mg PO QAM #90 tabs 09/20/23 12/11/23 Rx fluticasone furoate 100 1 inh inhalation DAILY asthma due 09/29/23 12/11/23 Rx mcg-vilanterol 25 mcg/dose to allergies #60 ea inhalation powder (Breo Ellipta) montelukast 10 mg tablet 10 mg PO QAM #90 tabs 09/29/23 12/11/23 Rx (Singulair) fluticasone propionate 50 2 spray intranasal DAILY #30 mL 11/22/23 12/11/23 Rx mcg/actuation nasal spray,suspension dicyclomine 10 mg capsule 10 mg PO TID 12/11/23 12/11/23 History duloxetine 60 mg capsule,delayed 60 mg PO QAM 12/11/23 12/11/23 History release spironolactone 25 mg tablet 25 mg PO BID 12/11/23 12/11/23 History Past Med/Surg History Medical History Benign essential tremor Smith esophagus Myofascial pain GERD (gastroesophageal reflux disease) Piriformis syndrome of left side Macular degeneration of both eyes Asthma allergy induced--inhaler prn Allergies SBO (small bowel obstruction) admitted 10/2020 for probable SBO Raynaud's disease Hyperlipidemia Back pain Duloxetine for pain control HTN (hypertension) Surgical History History of esophagogastroduodenoscopy (EGD) last 11/20/20 @ [facility] History of open reduction and internal fixation (ORIF) procedure right ankle--hardware in place History of arthroscopy of right knee meniscus repair Status post epidural steroid injection History of colposcopy with cervical biopsy History of colonoscopy last 11/20/20 @ [facility] History of tooth extraction History of wisdom tooth extraction History of tonsillectomy and adenoidectomy Previous back surgery piriformis suglianne 2016 History of vaginal hysterectomy History of tubal ligation History of laparoscopy History of dilation and curettage x2 Family History Sister Congestive heart failure aug 39 also HTN Hypertension Father , age 82 Coronary heart disease Family history of reaction to anesthesia "spinals have lingered in him for awhile" Family history of diabetes mellitus Brother , complications of COVID 19 Valvular heart disease Denies family history of Ovarian cancer Prostate cancer Breast cancer Lung cancer Colorectal cancer Social History Smoking Status: Never smoker Second Hand Exposure: No; Do You Dip or Chew Tobacco: No; Hx Alcohol Use: Yes Alcohol type: beer Alcohol Intake Frequency Comment: social Hx Substance Use: No Preferred Language: Haitian Communication Ability: Effective Visual Impairment: No Limitations Hearing Ability: Normal Supervisor Joiners Required: No Beliefs That Will Affect Care: None marital status: Current Living Situation: Spouse current occupational status: employed 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[employer] Other Information That Helps Us Care for You: No Feels Safe at Home: Yes Safety Concerns: Feels Safe At This Time Childhood Exposure to Second-Hand Smoke: No caffeine: Yes Dental Care, Regularly: Yes Physical Activity Frequency: Does not Exercise Seatbelt Use: always Sunscreen Use: Yes Assistive Devices: Contacts Review of Systems Review of Systems: All systems reviewed & are unremarkable except as noted in HPI & below Respiratory: + cough (chronic) Physical Exam Constitutional: WD/WN, vitals as above ENMT: external ear and nose normal, oropharynx normal Respiratory: normal respiratory effort, lungs clear to auscultation Cardiovascular: RRR, no murmur, no edema Gastrointestinal (Abdomen): Percussion/Palpation: + abdomen tender (lower abdomen without rebound tenderness) and abdomen soft; no guarding and abdomen not rigid Skin: no rashes, warm and dry Neurologic: moves all extremities and awake; not confused Psychiatric: A+Ox3, euthymic affect Results & Data Results & Data Vital Signs (Past 12 Hours) Vital Signs Temp Pulse Pulse Resp BP BP Pulse Ox 12/11/23 12:16 92 H 16 151/117 H 96 12/11/23 10:15 36.1 C L 85 18 169/83 H 100 O2 Del Method 12/11/23 12:16 Room Air 12/11/23 10:15 Room Air Laboratory Results Abnormal lab results 04/08/24 Range/Units 10:36 WBC 13.32 H (4.8-10.8) K/ul Neut # (Auto) 10.90 H (1.40-6.50) K/uL [place] # (Auto) 1.01 H (0.11-0.59) K/uL Potassium 3.4 L (3.5-5.1) mmol/L Glucose 124 H (70-99(Fasting)) mg/dl Diagnostic Findings ABDOMEN AND PELVIS CT WITH IV CONTRAST CT DOSE: 1174.44 mGy.cm HISTORY: Lower abd pain nausea TECHNIQUE: Multiaxial CT images of the abdomen and pelvis were performed following the use of intravenous contrast. A dose lowering technique was utilized adhering to the principles of ALARA. COMPARISON STUDY: Abdomen and pelvis CT 03/16/2023. FINDINGS: Mild dependent changes seen at the lung bases. No pneumoperitoneum. No pneumatosis. No acute fractures. The liver, gallbladder, spleen, adrenal glands, pancreas, and kidneys are unremarkable. No hydronephrosis. Mild bilateral perinephric edema. This is likely chronic. The main portal vein is patent. Mild calcified plaque within the normal caliber abdominal aorta. There is a left circumaortic renal vein. No retroperitoneal or pelvic lymphadenopathy. Trace pelvic free fluid. Prior hysterectomy. Mildly distended bladder. No bladder wall thickening. Multiple colonic diverticula. There is an inflamed diverticulum at the mid sigmoid colon with pericolonic fat stranding and mild bowel wall thickening. This is consistent with acute diverticulitis. No perforation at this time. There is possible small developing linear intramural abscess within the mid sigmoid colon best seen on image 291 measuring approximately 3.1 x 0.7 cm. This could represent submucosal edema. This is too small for percutaneous drainage. Mild thickening along the left ovary is likely reactive. No evidence for a bowel obstruction. Normal appendix. IMPRESSION: 1. Acute sigmoid diverticulitis. No perforation at this time. 2. There is a possible small linear intramural abscess at the mid sigmoid colon which could represent submucosal edema. This is too small for percutaneous drainage. 3. Normal appendix. Medications Administered ER medications given: Normal saline for 1 L bolus Dicyclomine 20 mg IM Acetaminophen 1000 mg IV Famotidine 20 mg IV Ondansetron 4 mg IV Zosyn 4.5 g IV Code Status & VTE Plan Code Status Full VTE Prophylaxis Plan VTE Prophylaxis will be ordered: Yes PG Care Time/CCT Total # of Minutes Spent Total Time Spent with Patient: Total time spent is greater than 50% in coordination of care (as documented) at patient's floor/unit and/or counseling patient: Coding Level of Care Code 11004 INT INP/OBS CARE 2/55MIN Diagnoses Acute diverticulitis K57.92 HTN (hypertension) I10 GERD (gastroesophageal reflux disease) K21.9 Smith esophagus K22.70
[2023-12-11] MEDS ORDERED: MoRPHine SULFATE 4 MG/ML 1 ML CARP\\VIAL IV PRN (15:09)
[2023-12-11] MEDS: PIPERACILLIN/TAZOBACTAM 4.5 GM in DEXTROSE 5% MINI-B 100 ML IV ONE (15:33)
[2023-12-11] MEDS ORDERED: ONDANSETRON INJ 2 MG/ML 2 ML VIAL IV PRN (15:40)
[2023-12-11] MEDS: MoRPHine SULFATE 2 MG/ML CARP IV STA (16:20)
[2023-12-11] MEDS: LACTATED RINGER'S 1,000 ML IV SCH (16:21)
[2023-12-11] MEDS: PANTOprazole 40 MG in SYRINGE 0 ML IV SCH (20:34)
[2023-12-11] MEDS: MoRPHine SULFATE 2 MG/ML CARP IV PRN (20:34)
[2023-12-11] MEDS: SPIRONOLACTONE 25 MG TAB PO SCH (21:19)
[2023-12-11] MEDS: PIPERACILLIN/TAZOBACTAM 4.5 GM in DEXTROSE 5% MINI-B 100 ML IV SCH (21:19)
[2023-12-11] MEDS: ENOXAPARIN INJ 40 MG/0.4 ML SYR SQ SCH (21:19)
[2023-12-11] MEDS: DICYCLOMINE HCL 10 MG CAP PO SCH (21:20)
[2023-12-12] MEDS: amLODIPine BESYLATE 5 MG TAB PO SCH (07:44)
[2023-12-12] MEDS: MONTELUKAST SODIUM 10 MG TABLET PO SCH (07:45)
[2023-12-12] MEDS: FLUTICASONE PROPIONATE NA SPR 16 GM BTL NAE SCH (07:45)
[2023-12-12] MEDS: FLUTICASONE/VILANTEROL 100/25MCG 14 PUFFS/INHALER INH SCH (07:45)
[2023-12-12] MEDS: DULoxetine HCL 60 MG CAP PO SCH (07:46)
[2023-12-12] MEDS: hydroCHLOROthiazide 25 MG TAB PO SCH (07:46)
[2023-12-12] MEDS: ACETAMINOPHEN 1,000 MG/100 ML VIAL IV PRN (07:55)
[2023-12-12 10:23] LABS: Creatinine Clr Calc Pharmacy 86.5 ml/min; Est GFR (African American) 109.1 ml/min; Est GFR (Non-African American) 94.2 ml/min; Magnesium 1.7 mg/dl (1.7-2.4); Potassium 2.9 mmol/L (3.5-5.1)
[2023-12-12 10:34] LABS: Basophils # (auto) 0.04 K/uL (0.00-0.20); Basophils % (auto) 0.5 %; Eosinophils # (auto) 0.04 K/uL (0.00-0.50); Eosinophils % (auto) 0.5 %; Hematocrit (blood only) 38.3 % (37.0-47.0); Hemoglobin 12.7 g/dl (12.0-16.0); Immature Granulocytes # (auto) 0.03 K/uL (0.01-0.20); Immature Granulocytes % (auto) 0.4 %; Lymphocytes # (auto) 1.77 K/uL (1.20-3.40); Lymphocytes % (auto) 21.2 %; Mean Corpuscular Hemoglobin 29.2 pg (25.0-34.0); Mean Corpuscular Hgb Conc 33.2 g/dL (32.0-36.0); Mean Platelet Volume 9.6 fL (9.4-12.4); Monocytes # (auto) 0.82 K/uL (0.11-0.59); Monocytes % (auto) 9.8 %; Neutrophils # (auto) 5.63 K/uL (1.40-6.50); Neutrophils % (auto) 67.6 %; Platelet Count 268 K/uL (130-400); RDW Coefficient of Variation 12.4 % (11.5-14.5); RDW Standard Deviation 40.1 fL (36.4-46.3); Red Blood Count 4.35 M/uL (4.20-5.40); White Blood Count 8.33 K/ul (4.8-10.8)
[2023-12-12] MEDS: MAGNESIUM SULFATE / D5W 1 GM/100 ML BAG IV ONE (11:38)
--- NOTE | 2023-12-12 11:42 | Hospitalist Progress Note ---
Date of Service December 12, 2023 Assessment & Plan (1) Acute diverticulitis: Plan: Presents with lower abd pain, leukocytosis, afebrile, sigmoid diverticulitis with possible intramural abscess not amenable to drainage WBC count normalized but continues with pain. No nausea and has chronic loose stools Last colonoscopy 2020 showed diverticulosis in sigmoid colon, 3 polyps from cecum biopsied and showed a tubular adenoma, an inflamed hyperplastic polyp, and a serrated polyp with focal features of a sessile serrated adenoma/sessile serrated polyp. High-grade glandular dysplasia and carcinoma are not seen COntinue NPO but can have ice chips Continue IV fluids and IV APAP, IV morphine prn pain Continue IV Zosyn Follow up colonoscopy as outpatient in 6 weeks Follow CBC, BMP, mag (2) Hypokalemia: Plan: secondary to poor po intake, HCTZ use (despite aldactone use) replace with total of 60 meq po KCl today Hold further HCTZ Follow BMP Replace IV magnesium as well and follow Mag levels (3) HTN (hypertension): Plan: BPs controlled Continue amlodipine, but now hold HCTZ and spironolactone while NPO and on IVFs (4) GERD (gastroesophageal reflux disease): Plan: Continue pantoprazole IV for now for Smith's (5) Smith esophagus: Plan: PPI (6) IBS (irritable bowel syndrome): Plan: Follows with GI. Tried FODMAPS diet in past with little success and stopped Advised increasing fiber in diet after recovery from acute diverticulitis Plan VTE Prophylaxis - Lovenox 40mg SQ daily Disposition - continued stay med/surg Admission and Anticipated Discharge Date Admission Date: December 11, 2023 Anticipated date of discharge: 12/14/23 Subjective Pt still having fairly significant lower abd pain all across abdomen. No nausea, has chronic loose stools. No fevers here or at home. Physical Exam Constitutional: WD/WN, vitals as above Respiratory: normal respiratory effort, lungs clear to auscultation Cardiovascular: RRR, no murmur, no edema Gastrointestinal (Abdomen): Inspection/Auscultation: normal bowel sounds; abdomen not distended Percussion/Palpation: + abdomen tender (all across lower abd,no guarding or rebound) and abdomen soft; no guarding Psychiatric: A+Ox3, euthymic affect Results & Data Results & Data Vital Signs (Past 12 Hours) Vital Signs Temp Pulse Resp BP Pulse Ox O2 Del Method 12/12/23 07:35 Room Air 12/12/23 07:15 37.0 C 70 16 119/75 99 Room Air Laboratory Results CBC, BMP, magnesium reviewed PG Care Time/CCT Total # of Minutes Spent Total Time Spent with Patient: Total time spent is greater than 50% in coordination of care (as documented) at patient's floor/unit and/or counseling patient: Coding Level of Care Code 77217 SUB INP/OBS CARE 35MIN Diagnoses Acute diverticulitis K57.92 Hypokalemia E87.6 HTN (hypertension) I10 GERD (gastroesophageal reflux disease) K21.9 Smith esophagus K22.70 IBS (irritable bowel syndrome) K58.9
[2023-12-12] MEDS: POTASSIUM CHLORIDE CRTAB 20 MEQ TABCR PO STA (11:53)
[2023-12-12] MEDS: POTASSIUM CHLORIDE CRTAB 20 MEQ TABCR PO ONE (13:45)
--- NOTE | 2023-12-13 06:01 | Electrocardiogram Report ---
Test Reason : Blood Pressure : / mmHG Vent. Rate : 089 BPM Atrial Rate : 089 BPM P-R Int : 188 ms QRS Dur : 104 ms QT Int : 390 ms P-R-T Axes : 068 -38 039 degrees QTc Int : 474 ms Sinus rhythm with occasional Premature ventricular complexes Possible Left atrial enlargement Left axis deviation Incomplete right bundle branch block Minimal voltage criteria for LVH, may be normal variant Abnormal ECG When compared with ECG of 30-JUN-2021 19:26, Premature ventricular complexes are now Present Confirmed by Awais Telles ([id number]) on 12/13/2023 6:01:21 AM Referred By: REFERRED SELF Confirmed By:Awais Telles
[2023-12-13 06:43] LABS: Basophils # (auto) 0.05 K/uL (0.00-0.20); Basophils % (auto) 0.8 %; Eosinophils # (auto) 0.09 K/uL (0.00-0.50); Eosinophils % (auto) 1.5 %; Hematocrit (blood only) 37.2 % (37.0-47.0); Hemoglobin 12.6 g/dl (12.0-16.0); Immature Granulocytes # (auto) 0.03 K/uL (0.01-0.20); Immature Granulocytes % (auto) 0.5 %; Lymphocytes % (auto) 21.1 %; Mean Corpuscular Hemoglobin 29.4 pg (25.0-34.0); Mean Corpuscular Hgb Conc 33.9 g/dL (32.0-36.0); Mean Corpuscular Volume 86.9 fL (80.0-100.0); Mean Platelet Volume 9.8 fL (9.4-12.4); Monocytes # (auto) 0.59 K/uL (0.11-0.59); Monocytes % (auto) 9.6 %; Neutrophils # (auto) 4.11 K/uL (1.40-6.50); Neutrophils % (auto) 66.5 %; Platelet Count 275 K/uL (130-400); RDW Coefficient of Variation 12.2 % (11.5-14.5); RDW Standard Deviation 39.1 fL (36.4-46.3); Red Blood Count 4.28 M/uL (4.20-5.40); White Blood Count 6.17 K/ul (4.8-10.8)
[2023-12-13 07:18] LABS: BUN Creatinine Ratio 7.9 (10-20); Calcium 9.2 mg/dl (8.6-10.3); Creatinine Clr Calc Pharmacy 96.1 ml/min; Est GFR (Non-African American) 97.5 ml/min; Potassium 3.7 mmol/L (3.5-5.1)
[2023-12-13] MEDS: cefTRIAXone SODIUM 2,000 MG in DEXTROSE 5 % MINI-B 50 ML IV SCH (12:17)
[2023-12-13] MEDS ORDERED: ACETAMINOPHEN 500 MG TAB PO PRN (13:22)
--- NOTE | 2023-12-13 13:23 | Hospitalist Progress Note ---
Date of Service December 13, 2023 Assessment & Plan (1) Acute diverticulitis: Plan: Presents with lower abd pain, leukocytosis, afebrile, sigmoid diverticulitis with possible intramural abscess not amenable to drainage WBC count normalized but continues with pain. No nausea and has chronic loose stools Last colonoscopy 2020 showed diverticulosis in sigmoid colon, 3 polyps from cecum biopsied and showed a tubular adenoma, an inflamed hyperplastic polyp, and a serrated polyp with focal features of a sessile serrated adenoma/sessile serrated polyp. High-grade glandular dysplasia and carcinoma are not seen Electrolytes now normalized with replacement Advance diet to clear liquids, advised to not overdo it Continue IV fluids but reduce rate to 70mL/hr Change IV APA to po, and continue IV morphine prn pain Switch IV Zosyn to ceftriaxone and flagyl for narrower spectrum Follow up colonoscopy as outpatient in 6 weeks Follow CBC, BMP, mag in AM (2) Hypokalemia: Plan: secondary to poor po intake, HCTZ use (despite aldactone use) Now resolved with replacement and holding HCTZ continue to hold further HCTZ Follow BMP (3) HTN (hypertension): Plan: BPs controlled Continue amlodipine, but now hold HCTZ and spironolactone while NPO and on IVFs (4) GERD (gastroesophageal reflux disease): Plan: Continue pantoprazole but convert to po for Smith's (5) Smith esophagus: Plan: PPI (6) IBS (irritable bowel syndrome): Plan: Follows with GI. Tried FODMAPS diet in past with little success and stopped Advised increasing fiber in diet after recovery from acute diverticulitis Stool PCR and C. diff negative Colonoscopy in 2020 normal/no colitis could also be side effect of PPI? Plan VTE Prophylaxis - Lovenox 40mg SQ daily Disposition - continued stay med/surg Admission and Anticipated Discharge Date Admission Date: December 11, 2023 Subjective Pt still having the same lower abd pain but is hesitant to take any pain meds today. Is still having her usual loose stool small amounts each time she urinates. She is ambulating halls. No nausea and feels she could try some clear liquids. Physical Exam Constitutional: WD/WN, vitals as above Respiratory: normal respiratory effort, lungs clear to auscultation Cardiovascular: RRR, no murmur, no edema Gastrointestinal (Abdomen): Inspection/Auscultation: normal bowel sounds; abdomen not distended Percussion/Palpation: + abdomen tender (all across lower abd,no guarding or rebound) and abdomen soft; no guarding Psychiatric: A+Ox3, euthymic affect Results & Data Results & Data Vital Signs (Past 12 Hours) Vital Signs Temp Pulse Resp BP Pulse Ox O2 Del Method 12/13/23 13:00 36.5 C 68 16 124/74 97 Room Air 12/13/23 08:24 36.7 C 64 14 126/80 96 Room Air Laboratory Results CBC, BMP, magnesium reviewed PG Care Time/CCT Total # of Minutes Spent Total Time Spent with Patient: Total time spent is greater than 50% in coordination of care (as documented) at patient's floor/unit and/or counseling patient: Coding Level of Care Code 52359 SUB INP/OBS CARE 2/35MIN Diagnoses Acute diverticulitis K57.92 Hypokalemia E87.6 HTN (hypertension) I10 GERD (gastroesophageal reflux disease) K21.9 Smith esophagus K22.70 IBS (irritable bowel syndrome) K58.9
[2023-12-13] MEDS: metroNIDAZOLE 500 MG/100 ML BAG IV SCH (13:46)
[2023-12-13] MEDS: PANTOprazole 40 MG TAB PO SCH (20:58)
[2023-12-14 08:06] LABS: Basophils # (auto) 0.04 K/uL (0.00-0.20); Basophils % (auto) 0.9 %; Eosinophils # (auto) 0.05 K/uL (0.00-0.50); Eosinophils % (auto) 1.1 %; Hematocrit (blood only) 40.5 % (37.0-47.0); Hemoglobin 13.4 g/dl (12.0-16.0); Immature Granulocytes # (auto) 0.02 K/uL (0.01-0.20); Immature Granulocytes % (auto) 0.4 %; Lymphocytes # (auto) 1.18 K/uL (1.20-3.40); Lymphocytes % (auto) 26.4 %; Mean Corpuscular Hemoglobin 29.5 pg (25.0-34.0); Mean Corpuscular Hgb Conc 33.1 g/dL (32.0-36.0); Mean Platelet Volume 9.7 fL (9.4-12.4); Monocytes # (auto) 0.46 K/uL (0.11-0.59); Monocytes % (auto) 10.3 %; Neutrophils # (auto) 2.72 K/uL (1.40-6.50); Neutrophils % (auto) 60.9 %; Platelet Count 329 K/uL (130-400); RDW Coefficient of Variation 12.2 % (11.5-14.5); RDW Standard Deviation 39.6 fL (36.4-46.3); Red Blood Count 4.55 M/uL (4.20-5.40); White Blood Count 4.47 K/ul (4.8-10.8)
[2023-12-14 08:23] LABS: BUN Creatinine Ratio 7.9 (10-20); Calcium 9.3 mg/dl (8.6-10.3); Creatinine Clr Calc Pharmacy 96.1 ml/min; Est GFR (Non-African American) 97.5 ml/min; Magnesium 1.9 mg/dl (1.7-2.4); Phosphorus 2.8 mg/dl (2.5-4.9); Potassium 3.4 mmol/L (3.5-5.1)
[2023-12-14] MEDS: POTASSIUM CHLORIDE CRTAB 20 MEQ TABCR PO STA (10:53)
[2023-12-14] MEDS ORDERED: HYDROmorphone INJ 0.5 MG/0.5 ML SYR IV PRN ×2 (11:32)
--- NOTE | 2023-12-14 11:32 | Hospitalist Progress Note ---
Date of Service December 14, 2023 Assessment & Plan (1) Acute diverticulitis: Plan: Presents with lower abd pain, leukocytosis, afebrile, sigmoid diverticulitis with possible intramural abscess not amenable to drainage WBC count normalized but continues with similar pain. No nausea and has chronic loose stools, nonbloody Last colonoscopy 2020 showed diverticulosis in sigmoid colon, 3 polyps from cecum biopsied and showed a tubular adenoma, an inflamed hyperplastic polyp, and a serrated polyp with focal features of a sessile serrated adenoma/sessile serrated polyp. High-grade glandular dysplasia and carcinoma are not seen Continue clear liquids diet only today given ongoing pain If pain not improving or worsening by tomorrow, or certainly if spikes fever or leukocytosis returns--> repeat CT abd/pel Continue IV fluids w/ LR 70mL/hr Continue APAP po, and dc IV morphine due to itching and trial IV dilaudid instead prn Received IV Zosyn x 2 days and then narrowed to ceftriaxone and flagyl -continue both Follow up colonoscopy as outpatient in 6 weeks Follow CBC, BMP, mag in AM Replace lytes with KCl 40 meq po x 1 today (2) Hypokalemia: Plan: secondary to poor po intake, HCTZ use (despite aldactone use) Improving with replacement and holding HCTZ but slightly low today continue to hold further HCTZ Follow BMP give KCl 40 po x 1 (3) HTN (hypertension): Plan: BPs controlled Continue amlodipine, but holding HCTZ and spironolactone while NPO and on IVFs (4) GERD (gastroesophageal reflux disease): Plan: Continue pantoprazole, w/ h/o Smith's (5) Smith esophagus: Plan: PPI (6) IBS (irritable bowel syndrome): Plan: Follows with GI. Tried FODMAPS diet in past with little success and stopped Advised increasing fiber in diet after recovery from acute diverticulitis Stool PCR and C. diff negative Colonoscopy in 2020 normal/no colitis could also be side effect of PPI? Unfortunately given Smith's, cannot stop PPI but maybe could reduce dose to once daily Plan VTE Prophylaxis - Lovenox 40mg SQ daily Disposition - continued stay med/surg Admission and Anticipated Discharge Date Admission Date: December 11, 2023 Subjective Pt still having lower abdominal all across, worse with eating liquids this AM and worse with walking. Feels bloated. Severity of pain similar to yesterday. Moved bowels this AM, no blood. No nausea. Having itching on feet and ankles since this AM. Physical Exam Constitutional: WD/WN, vitals as above Respiratory: normal respiratory effort, lungs clear to auscultation Cardiovascular: RRR, no murmur, no edema Gastrointestinal (Abdomen): Inspection/Auscultation: normal bowel sounds; abdomen not distended Percussion/Palpation: + abdomen tender (all across lower abd,no guarding or rebound) and abdomen soft; no guarding Skin: no rashes Psychiatric: A+Ox3, euthymic affect Results & Data Results & Data Vital Signs (Past 12 Hours) Vital Signs Temp Pulse Resp BP Pulse Ox O2 Del Method 12/14/23 06:29 36.6 C 72 16 137/79 99 Room Air Laboratory Results CBC, BMP, magnesium reviewed PG Care Time/CCT Total # of Minutes Spent Total Time Spent with Patient: Total time spent is greater than 50% in coordination of care (as documented) at patient's floor/unit and/or counseling patient: Coding Level of Care Code 08340 SUB INP/OBS CARE 2/35MIN Diagnoses Acute diverticulitis K57.92 Hypokalemia E87.6 HTN (hypertension) I10 GERD (gastroesophageal reflux disease) K21.9 Smith esophagus K22.70 IBS (irritable bowel syndrome) K58.9
[2023-12-14] MEDS: diphenhydrAMINE 2%/ZINC 0.1% CREAM 28.4GM TUBE EXT PRN (14:15)
[2023-12-15 06:26] LABS: Basophils # (auto) 0.07 K/uL (0.00-0.20); Basophils % (auto) 1.4 %; Eosinophils # (auto) 0.13 K/uL (0.00-0.50); Eosinophils % (auto) 2.6 %; Hematocrit (blood only) 43.2 % (37.0-47.0); Hemoglobin 14.4 g/dl (12.0-16.0); Immature Granulocytes # (auto) 0.02 K/uL (0.01-0.20); Immature Granulocytes % (auto) 0.4 %; Lymphocytes # (auto) 1.87 K/uL (1.20-3.40); Mean Corpuscular Hemoglobin 29.3 pg (25.0-34.0); Mean Corpuscular Hgb Conc 33.3 g/dL (32.0-36.0); Mean Platelet Volume 9.3 fL (9.4-12.4); Monocytes # (auto) 0.44 K/uL (0.11-0.59); Monocytes % (auto) 8.7 %; Neutrophils # (auto) 2.52 K/uL (1.40-6.50); Neutrophils % (auto) 49.9 %; Platelet Count 379 K/uL (130-400); RDW Coefficient of Variation 12.2 % (11.5-14.5); RDW Standard Deviation 39.2 fL (36.4-46.3); Red Blood Count 4.91 M/uL (4.20-5.40); White Blood Count 5.05 K/ul (4.8-10.8)
[2023-12-15 06:53] LABS: Albumin Globulin Ratio 1.4 (0.9-2); Bilirubin,Total 0.3 mg/dl (0.2-1.0); Calcium 9.9 mg/dl (8.6-10.3); Creatinine Clr Calc Pharmacy 90.4 ml/min; Est GFR (African American) 110.7 ml/min; Est GFR (Non-African American) 95.5 ml/min; Globulin 2.8 gm/dl (2.5-4.0); Magnesium 1.9 mg/dl (1.7-2.4); Phosphorus 3.6 mg/dl (2.5-4.9); Potassium 3.8 mmol/L (3.5-5.1); Total Protein 6.8 gm/dl (6.0-8.3)
[2023-12-15] MEDS: OPTIRAY 320 100ml IV ONE (10:15)
--- NOTE | 2023-12-15 10:45 | CT Scan Report ---
ABDOMEN AND PELVIS CT WITH IV CONTRAST CT DOSE: 1197.95 mGy.cm HISTORY: f/u sigmoid diverticulitis and possible abscesses TECHNIQUE: Multiaxial CT images of the abdomen and pelvis were performed following the use of intrave nous contrast. A dose lowering technique was utilized adhering to the principles of ALARA. COMPARISON STUDY: Abdomen and pelvis CT 12/11/2023. FINDINGS: Mild dependent changes seen at the lung bases. No pneumoperitoneum. No pneumatosis. No acut e fractures. Small amount of hyperdense material layering within the gallbladder favors vicarious exc retion of contrast. No gallbladder wall thickening. The liver, pancreas, spleen, and adrenal glands a re unremarkable. The kidneys enhance normally. No hydronephrosis. The main portal vein is patent. Mil d calcified plaque within the normal caliber abdominal aorta. There is a left circumaortic renal vein . No retroperitoneal or pelvic lymphadenopathy. The bladder is unremarkable. Prior hysterectomy. Mild thickening and pericolonic fat stranding within the mid sigmoid colon consistent with acute divertic ulitis. This is stable to slightly improved compared to the prior study. No evidence for perforation, intramural abscess, or pericolonic abscess. No evidence for a bowel obstruction. Normal appendix. IMPRESSION: 1. Stable to slight improvement in the acute sigmoid diverticulitis. No abscess or perforation identi fied. 2. No evidence for a bowel obstruction. 3. Normal appendix. ACT 112: Negative or not required by law. Electronically signed by: Ty Gibbs M.D. 12/15/2023 10:43 AM
--- NOTE | 2023-12-15 14:01 | Hospitalist Progress Note ---
Date of Service December 15, 2023 Assessment & Plan (1) Acute diverticulitis: Plan: Presents with lower abd pain, leukocytosis, afebrile, sigmoid diverticulitis with possible intramural abscess not amenable to drainage WBC count normalized and pain finally starting to improve. No nausea and has chronic loose stools, nonbloody Tolerating clear liquids diet better today Last colonoscopy 2020 showed diverticulosis in sigmoid colon, 3 polyps from cecum biopsied and showed a tubular adenoma, an inflamed hyperplastic polyp, and a serrated polyp with focal features of a sessile serrated adenoma/sessile serrated polyp. High-grade glandular dysplasia and carcinoma are not seen Repeat CT abd/pel 12/14 shows improvement in diverticulitis and no further question of intramural abscess Remains afebrile, no leukocytosis Advance to full liquids diet today and then likely low fiber tomorrow Dc IVFs Continue APAP po, and continue IV dilaudid prn Received IV Zosyn x 2 days and then narrowed to ceftriaxone and flagyl -continue both and then convert to po Augmentin on discharge Follow up colonoscopy as outpatient in 6 weeks Follow CBC, BMP, mag in AM-lytes normal today (2) Hypokalemia: Plan: secondary to poor po intake, HCTZ use (despite aldactone use) Now resolved with replacement and holding HCTZ continue to hold further HCTZ Follow BMP (3) HTN (hypertension): Plan: BPs controlled Continue amlodipine, but holding HCTZ and spironolactone (4) GERD (gastroesophageal reflux disease): Plan: Continue pantoprazole, w/ h/o Smith's (5) Smith esophagus: Plan: PPI (6) IBS (irritable bowel syndrome): Plan: Follows with GI. Tried FODMAPS diet in past with little success and stopped Advised increasing fiber in diet after recovery from acute diverticulitis-this can be done by taking a fiber gummy or supplement Stool PCR and C. diff negative Colonoscopy in 2020 normal/no colitis could also be side effect of PPI? Unfortunately given Smith's, cannot stop PPI -pt reports diarrhea predates going on PPI regardless Plan VTE Prophylaxis - Lovenox 40mg SQ daily Disposition - continued stay med/surg but likely dc to home tomorrow if tolerates advancement of diet Admission and Anticipated Discharge Date Admission Date: December 11, 2023 Subjective Pt feeling better today than yesterday with slightly less pain. No nausea, moved bowels today and had orange color but had orange jello. Physical Exam Constitutional: WD/WN, vitals as above Cardiovascular: RRR, no murmur, no edema Gastrointestinal (Abdomen): Inspection/Auscultation: abdomen not distended Percussion/Palpation: + abdomen tender (all across lower abd,no guarding or rebound, less than previously) and abdomen soft; no guarding Skin: no rashes Psychiatric: A+Ox3, euthymic affect Results & Data Results & Data Vital Signs (Past 12 Hours) Vital Signs Temp Pulse Resp BP Pulse Ox O2 Del Method 12/15/23 07:40 37.0 C 64 16 131/78 97 Room Air Laboratory Results CBC, BMP,magnesium, blood cxs reviewed PG Care Time/CCT Total # of Minutes Spent Total Time Spent with Patient: Total time spent is greater than 50% in coordination of care (as documented) at patient's floor/unit and/or counseling patient: Coding Level of Care Code 01151 SUB INP/OBS CARE 2/35MIN Diagnoses Acute diverticulitis K57.92 Hypokalemia E87.6 HTN (hypertension) I10 GERD (gastroesophageal reflux disease) K21.9 Simth esophagus K22.70 IBS (irritable bowel syndrome) K58.9
[2023-12-16 06:13] LABS: Basophils # (auto) 0.04 K/uL (0.00-0.20); Eosinophils % (auto) 2.5 %; Hematocrit (blood only) 41.3 % (37.0-47.0); Hemoglobin 13.8 g/dl (12.0-16.0); Immature Granulocytes # (auto) 0.02 K/uL (0.01-0.20); Immature Granulocytes % (auto) 0.5 %; Lymphocytes # (auto) 1.43 K/uL (1.20-3.40); Mean Corpuscular Hemoglobin 29.4 pg (25.0-34.0); Mean Corpuscular Hgb Conc 33.4 g/dL (32.0-36.0); Mean Corpuscular Volume 88.1 fL (80.0-100.0); Mean Platelet Volume 9.3 fL (9.4-12.4); Monocytes # (auto) 0.41 K/uL (0.11-0.59); Monocytes % (auto) 10.3 %; Neutrophils # (auto) 1.97 K/uL (1.40-6.50); Neutrophils % (auto) 49.7 %; Platelet Count 347 K/uL (130-400); RDW Standard Deviation 38.5 fL (36.4-46.3); Red Blood Count 4.69 M/uL (4.20-5.40); White Blood Count 3.97 K/ul (4.8-10.8)
[2023-12-16 06:34] LABS: BUN Creatinine Ratio 6.7 (10-20); Calcium 9.7 mg/dl (8.6-10.3); Creatinine Clr Calc Pharmacy 80.7 ml/min; Est GFR (African American) 100.4 ml/min; Est GFR (Non-African American) 86.6 ml/min; Potassium 3.8 mmol/L (3.5-5.1)
--- NOTE | 2023-12-16 11:51 | Discharge Summary ---
Discharge Summary Date of Service December 16, 2023 Notes For Next Care Provider Needs colonoscopy in 6 weeks Medication Changes From Visit Added Augmentin 875mg po bid x 5 more days Added FiberCon 1250mg po daily starting in 2 weeks Admission HPI Per Admitting Provider Catherine Bush is a 58 year old female who presents to the ER with abdominal pain. Symptoms started Monday (3 days ago) feeling like her stomach was full all the time. This tuned into abdominal pain 2 days ago with a constant ache, current severity 8/10, no radiation, worse with coughing, no association with food but she also hasn't been eating much, associated feeling full all the time. Today she worked for a couple of hours but the pain got worse and with her history of small bowel obstruction she decided to come to the ER. No fever, chills or urinary symptoms. She has IBS usually with diarrhea. No prior episodes of diverticulitis. Prior colonoscopy with Dr Rashid 2020. History of small bowel obstruction. Principal Dx & Hospital Course #1 = Principal Diagnosis (1) Acute diverticulitis: Presents with lower abd pain, leukocytosis, afebrile, sigmoid diverticulitis with possible intramural abscess not amenable to drainage WBC count normalized and pain now much improved after bowel rest, IVFs, and antibiotic therapy Last colonoscopy 2020 showed diverticulosis in sigmoid colon, 3 polyps from cecum biopsied and showed a tubular adenoma, an inflamed hyperplastic polyp, and a serrated polyp with focal features of a sessile serrated adenoma/sessile serrated polyp. High-grade glandular dysplasia and carcinoma are not seen Repeat CT abd/pel 12/14 shows improvement in diverticulitis and no further question of intramural abscess Remains afebrile, no leukocytosis, tolerating low fiber diet with much less pain Received IV Zosyn x 2 days and then narrowed to ceftriaxone and flagyl - convert to po Augmentin on discharge x 4.5 more days Follow up colonoscopy as outpatient in 6 weeks Continue low fiber diet x 2 weeks then advance to high fiber diet to prevent future diverticulitis (2) Hypokalemia: secondary to poor po intake, HCTZ use (despite aldactone use) Now resolved with replacement and holding HCTZ ok to resume home HCTZ and aldactone on discharge Follow BMP as outpt with PCP (3) HTN (hypertension): BPs controlled Continue amlodipine, and can resume HCTZ and spironolactone (4) GERD (gastroesophageal reflux disease): Continue pantoprazole, w/ h/o Smith's (5) Smith esophagus: PPI (6) IBS (irritable bowel syndrome): Follows with GI. Tried FODMAPS diet in past with little success and stopped Advised increasing fiber in diet after recovery from acute diverticulitis-this can be done by taking a fiber gummy or supplement Stool PCR and C. diff negative Colonoscopy in 2020 normal/no colitis could also be side effect of PPI? Unfortunately given Smith's, cannot stop PPI -pt reports diarrhea predates going on PPI regardless Plan VTE Prophylaxis - Lovenox 40mg SQ daily Disposition - dc to home Discharge Exam Constitutional WD/WN, vitals as above Respiratory normal respiratory effort, lungs clear to auscultation Cardiovascular RRR, no murmur, no edema Gastrointestinal (Abdomen) Inspection/Auscultation: normal bowel sounds; abdomen not distended Percussion/Palpation: + abdomen tender (mild in lower abdomen, much improved) and abdomen soft; no guarding Skin no rashes Psychiatric A+Ox3, euthymic affect Updated Medication List Medication Instructions Recorded Confirmed Type acetaminophen 500 mg tablet 1,000 mg PO TID PRN Pain 11/27/19 12/11/23 History amlodipine 10 mg tablet 10 mg PO QAM #90 tabs 12/21/22 12/11/23 Rx pantoprazole 40 mg tablet,delayed 40 mg PO BID #60 tabs 04/11/23 12/11/23 Rx release albuterol sulfate 90 mcg/actuation 2 puff inhalation Q6H PRN 08/02/23 12/11/23 Rx aerosol inhaler bronchospasm #8.5 grams fluticasone furoate 100 1 inh inhalation DAILY asthma due 09/29/23 12/11/23 Rx mcg-vilanterol 25 mcg/dose to allergies #60 ea inhalation powder (Breo Ellipta) montelukast 10 mg tablet 10 mg PO QAM #90 tabs 09/29/23 12/11/23 Rx (Singulair) fluticasone propionate 50 2 spray intranasal DAILY #30 mL 11/22/23 12/11/23 Rx mcg/actuation nasal spray,suspension dicyclomine 10 mg capsule 10 mg PO TID 12/11/23 12/11/23 History duloxetine 60 mg capsule,delayed 60 mg PO QAM 12/11/23 12/11/23 History release hydrochlorothiazide 12.5 mg tablet 12.5 mg PO QAM #90 tabs 12/15/23 Rx spironolactone 25 mg tablet 25 mg PO BID #180 tabs 12/15/23 Rx amoxicillin 875 mg-potassium 1 tab PO BID #9 tabs 12/16/23 Rx clavulanate 125 mg tablet calcium polycarbophil 625 mg 1,250 mg (2 x 625 mg) PO DAILY #60 12/16/23 Rx tablet (FiberCon) tabs Hospital Stay Data Consultations 12/11/23 13:52 ED Decision to Admit Stat Diagnostic Imagining Performed 12/11/23 12:26 CT abd pelvis IV con only Stat 12/15/23 08:22 CT Abd and Pelvis [CT abd pelvis IV con only] Routine Pending Results Patient Have Any Pending Studies at Discharge: Yes (Final blood cultures-no growth to date) Discharge Instructions Given to Patient (Per Discharging Provider) Please finish out 5 more days of the antibiotic called Augmentin, twice a day. You will need a colonoscopy in 6 weeks to further assess your colon. Total Time Total Time Spent Total Time Spent (In Minutes): 35 min Coding Level of Care Code 60465 INP/OBS DISCH >30 MIN Diagnoses Acute diverticulitis K57.92 Hypokalemia E87.6 HTN (hypertension) I10 GERD (gastroesophageal reflux disease) K21.9 Smith esophagus K22.70 IBS (irritable bowel syndrome) K58.9
== END 2023-12-16 14:19 | disposition home or self-care (01) | DRG 392 ==
LOC: ED 10:08 → SUATTDRO 14:23 → EDINP 14:23 → 3E 14:45

== ENCOUNTER 2024-08-16 16:58 | Inpatient (IN) ==
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
[2024-08-16 17:26] LABS: iSTAT Creatinine 0.7 mg/dl (0.6-1.3); iSTAT Ionized Calcium 1.13 mmol/l (1.12-1.32); iSTAT Potassium 3.1 mmol/L (3.3-5.0)
[2024-08-16 17:29] LABS: Basophils # (auto) 0.07 K/uL (0.00-0.20); Basophils % (auto) 0.6 %; Eosinophils % (auto) 0.8 %; Hematocrit (blood only) 43.7 % (37.0-47.0); Hemoglobin 15.6 g/dl (12.0-16.0); Immature Granulocytes # (auto) 0.25 K/uL (0.01-0.20); Immature Granulocytes % (auto) 2.1 %; Lymphocytes # (auto) 3.49 K/uL (1.20-3.40); Lymphocytes % (auto) 28.9 %; Mean Corpuscular Hgb Conc 35.7 g/dL (32.0-36.0); Mean Platelet Volume 9.2 fL (9.4-12.4); Monocytes # (auto) 0.87 K/uL (0.11-0.59); Monocytes % (auto) 7.2 %; Neutrophils % (auto) 60.4 %; Platelet Count 315 K/uL (130-400); RDW Coefficient of Variation 12.2 % (11.5-14.5); RDW Standard Deviation 36.8 fL (36.4-46.3); White Blood Count 12.08 K/ul (4.8-10.8)
[2024-08-16] MEDS: OPTIRAY 320 100ml IV ONE (17:31)
[2024-08-16] MEDS: ONDANSETRON INJ 2 MG/ML 2 ML VIAL IV STA (17:40)
[2024-08-16] MEDS: MoRPHine SULFATE 4 MG/ML 1 ML CARP\\VIAL IV STA ×2 (17:40→19:35)
[2024-08-16] MEDS: SODIUM CHLORIDE 0.9% 1,000 ML IV ONE (17:40)
[2024-08-16 17:46] LABS: Albumin Level 4.9 gm/dl (3.4-5.0); BUN Creatinine Ratio 26.4 (10-20); Bilirubin,Total 0.5 mg/dl (0.2-1.0); Calcium 9.9 mg/dl (8.6-10.3); Creatinine Clr Calc Pharmacy 83.8 ml/min; Globulin 2.5 gm/dl (2.5-4.0); Potassium 3.2 mmol/L (3.5-5.1); Total Protein 7.4 gm/dl (6.0-8.3)
[2024-08-16 17:54] LABS: Partial Thromboplastin Time 26 Seconds (21-31); Prothrombin Time 10.4 Seconds (9.0-12.0)
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
[2024-08-16] MEDS: ACETAMINOPHEN 325 MG TAB PO STA (19:34)
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
[2024-08-16 22:39] LABS: Magnesium 1.8 mg/dl (1.7-2.4)
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
[2024-08-17] MEDS: NSS + 20MEQ KCL 20 MEQ/1,000 ML BAG IV STA
[2024-08-17] MEDS: MAGNESIUM SULFATE / D5W 1 GM/100 ML BAG IV STA
[2024-08-17] MEDS ORDERED: ALBUTEROL HFA 8 GM INHALER INH PRN (00:15)
[2024-08-17] MEDS: traMADol HCL 50 MG TABLET PO PRN (00:29)
[2024-08-17] MEDS: LIDOCAINE 5% 1 PATCH TD STA (00:45)
[2024-08-17 01:02] LABS: Appearance Urine Clear (Clear); Bilirubin Urine Negative (Negative); Blood Urine Negative (Negative); Color Urine Yellow; Glucose Urine UA Negative (Negative); Ketones Urine 1+ (Negative); Leukocyte Esterase Urine Negative (Negative); Nitrite Urine Negative (Negative); Protein Urine Negative (Negative); Specific Gravity Urine 1.041 (1.000-1.030); Urobilinogen Urine Negative (Negative); pH Urine 5.5 (4.5-7.5)
[2024-08-17] MEDS: ACETAMINOPHEN 500 MG TAB PO PRN (01:49)
[2024-08-17] MEDS: ONDANSETRON INJ 2 MG/ML 2 ML VIAL IV PRN (08:04)
[2024-08-17] MEDS: ATORVASTATIN 10 MG TAB PO SCH (09:14)
[2024-08-17] MEDS: FAMOTIDINE 20 MG TAB PO SCH (09:14)
[2024-08-17] MEDS: DICYCLOMINE HCL 10 MG CAP PO SCH (09:14)
[2024-08-17] MEDS: DULoxetine HCL 60 MG CAP PO SCH (09:14)
[2024-08-17] MEDS: PANTOprazole 40 MG TAB PO SCH (09:14)
[2024-08-17] MEDS: amLODIPine BESYLATE 5 MG TAB PO SCH (09:14)
[2024-08-17] MEDS: FLUTICASONE PROPIONATE NA SPR 16 GM BTL NAE SCH (09:16)
[2024-08-17] MEDS: FLUTICASONE/VILANTEROL 100/25MCG 14 PUFFS/INHALER INH SCH (09:16)
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
[2024-08-17] MEDS: FEXOFENADINE HCL 180 MG TAB PO SCH (12:24)
[2024-08-17] MEDS: ACETAMINOPHEN 325 MG TAB PO SCH (17:25)
[2024-08-17] MEDS: IBUPROFEN 200 MG TAB PO PRN (19:28)
[2024-08-17] MEDS: LIDOCAINE 5% 1 PATCH TD SCH (21:29)
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
--- NOTE | 2024-08-18 06:32 | Electrocardiogram Report ---
Test Reason : Blood Pressure : */* mmHG Vent. Rate : 88 BPM Atrial Rate : 88 BPM P-R Int : 178 ms QRS Dur : 102 ms QT Int : 400 ms P-R-T Axes : 68 -49 41 degrees QTcB Int : 484 ms Normal sinus rhythm Left anterior fascicular block Nonspecific T wave abnormality Prolonged QT Abnormal ECG When compared with ECG of 11-Dec-2023 10:26, Premature ventricular complexes are no longer Present Incomplete right bundle branch block is no longer Present Confirmed by Awais Telles ([id number]) on 08/18/2024 6:32:40 AM Referred By: REFERRED SELF Confirmed By: Awais Telles
[2024-08-18 08:00] LABS: BUN Creatinine Ratio 11.5 (10-20); Calcium 9.2 mg/dl (8.6-10.3); Creatinine Clr Calc Pharmacy 100.1 ml/min; Potassium 3.4 mmol/L (3.5-5.1)
[2024-08-18 08:22] LABS: Hemoglobin 12.7 g/dl (12.0-16.0); Mean Corpuscular Hemoglobin 29.9 pg (25.0-34.0); Mean Corpuscular Hgb Conc 33.4 g/dL (32.0-36.0); Mean Corpuscular Volume 89.4 fL (80.0-100.0); Mean Platelet Volume 9.6 fL (9.4-12.4); Platelet Count 244 K/uL (130-400); RDW Coefficient of Variation 12.4 % (11.5-14.5); RDW Standard Deviation 40.4 fL (36.4-46.3); Red Blood Count 4.25 M/uL (4.20-5.40); White Blood Count 4.42 K/ul (4.8-10.8)
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
[2024-08-18] MEDS: POTASSIUM CHLORIDE CRTAB 20 MEQ TABCR PO STA (15:46)
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
[2024-08-19 08:35] LABS: Hematocrit (blood only) 39.9 % (37.0-47.0); Hemoglobin 13.4 g/dl (12.0-16.0); Mean Corpuscular Hemoglobin 30.5 pg (25.0-34.0); Mean Corpuscular Hgb Conc 33.6 g/dL (32.0-36.0); Mean Corpuscular Volume 90.7 fL (80.0-100.0); Mean Platelet Volume 9.4 fL (9.4-12.4); Platelet Count 256 K/uL (130-400); RDW Coefficient of Variation 12.1 % (11.5-14.5); RDW Standard Deviation 40.2 fL (36.4-46.3); White Blood Count 5.61 K/ul (4.8-10.8)
[2024-08-19 08:51] LABS: BUN Creatinine Ratio 14.3 (10-20); Calcium 9.5 mg/dl (8.6-10.3); Creatinine Clr Calc Pharmacy 87.2 ml/min; Potassium 3.8 mmol/L (3.5-5.1)
--- NOTE | 2024-08-19 09:25 | Orthopedic Progress Note ---
Date of Service August 19, 2024 Assessment & Plan (1) Closed compression fracture of first lumbar vertebra: (2) Closed compression fracture of thoracic vertebra: Plan Will TLSO brace to be placed by orthotics today, upright x-rays once in the brace. May then mobilize with physical therapy and discharge home. No lifting greater than 5 pounds, no repetitive bending lifting twisting turning, no kneeling or use of ladders. Given patient's occupation she will need to be out of work until she follows up with me in the office in 2 to 3 weeks as long as her x-rays are stable and brace. Subjective Pain better controlled today. Sitting up on the edge of the bed, frustrated that she has been here 2 days waiting for orthotics to place her brace. Neurologically intact Review of Systems All systems reviewed & are unremarkable except as noted in HPI & below. Physical Exam Midline thoracolumbar tenderness motor strength is 5/5 in bilateral hip flexors, quadriceps, tibialis anterior, extensor hallucis longus, and gastroc/soleus complex Sensation intact to light touch in the L2-S1 dermatomes bilaterally 2+ reflexes at the achilles and patella tendons bilaterally No ankle clonus Results & Data Results & Data Laboratory Results . Diagnostic Findings MRI of the thoracic spine available for review today and interpreted personally. Evidence of T11 T12-L1 compression fractures, no obvious ligamentous injury, there is some edema extending into the posterior pedicle at T12 however no fracture line on CT at this level posterior ligamentous complex is intact MRI of the lumbar spine available for review today and interpreted personally. Stable appearing compression fracture at L1 with acute edema. Posterior ligamentous complex is intact. No canal or foraminal stenosis is evident throughout the thoracic or lumbar MRIs PG Care Time/CCT Total # of Minutes Spent Total Time Spent with Patient: Total time spent is greater than 50% in coordination of care (as documented) at patient's floor/unit and/or counseling patient: Coding Level of Care Code 78273 SUB INP/OBS CARE 2/35MIN Diagnoses Closed compression fracture of L1 vertebra, initial encounter S32.010A Encounter type: initial encounter Closed compression fracture of thoracic vertebra S22.000A Encounter type: initial encounter (1) Closed compression fracture of first lumbar vertebra Encounter type: initial encounter Qualified Code(s): S32.010A - Wedge compression fracture of first lumbar vertebra, initial encounter for closed fracture (2) Closed compression fracture of thoracic vertebra Encounter type: initial encounter Qualified Code(s): S22.000A - Wedge compression fracture of unspecified thoracic vertebra, initial encounter for closed fracture
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
[2024-08-19 11:42] VITALS: BP 135/75; PULSE 70; RESP 18; TEMP 97.7; O2SAT 99
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
== END 2024-08-19 14:40 | disposition home or self-care (01) | DRG 552 ==
LOC: ED 16:58 → 2S 23:20 → SUATTDRO 23:20 → 2S 23:53